=== PATIENT | female | born 1955 | race Caucasian/White ===

== ENCOUNTER 2017-05-24 20:12 | Observation (INO) ==
--- NOTE | 2017-05-24 20:43 | Emergency Department Note ---
Disposition Clinical Impression: Altered mental status, Syncope, Abnormal EKG, Obesity, Elevated blood pressure reading, History of pancreatitis, Leg edema, right, History of peripheral vascular disease Disposition: Admitted As Inpatient Referrals: Bernard Key DO [Primary Care Provider] - Forms: ED Satisfaction Letter General Adult HPI - General Chief complaint: ED Syncope Stated complaint: Dizzy,Passed Out Time Seen by Provider: 05/24/17 20:42 Source: patient, family Limitations: no limitations - History of Present Illness HPI Narrative: 61-year-old female brought in from home, there is concern for syncope. The patient had made a bowl of chicken soup and then reportedly passed out. She was lowered to the ground and did not sustain injury. There is no history of seizure-like activity. The family reports she was unconscious for a significant period of time. She has no previous history of syncope. No coronary disease no history of DVT PE or cancer. She does have a history of high blood pressure and previous leg surgery as well as chronic right lower extremity edema. There is no history of acute headache. No history of neck injury back injury abdominal or chest trauma. The patient is not known to be diabetic. Her glucose was checked at 118. There is no history of laceration or bleeding. The patient is not known to be anticoagulated. The patient does take diuretic medication per the . The patient has not been more anxious than usual. There is no history of increased stress or psychiatric concerns. The patient has no personal history of aneurysm. There are no direct complaints from the patient. She does not give a clear history. The patient's provides the information. He states she takes Vicodin for pain but only 1 tablet daily and has not taken it for a few days. Pain Scale: 0 - Related Data Previous Rx's Medication Instructions Recorded Hydrocodone/Acetaminophen [[place] 1 tab PO Q6H PRN #10 tab 11/05/15 5-325 Tablet] Ondansetron ODT [Zofran ODT] 4 mg SL Q6HR #10 tab.rapdis 11/05/15 Sulfamethoxazole/Trimeth DS 1 each PO BID #20 tablet 11/05/15 [Bactrim DS] Amoxicillin 875 mg PO BID #20 tablet 02/07/17 Ibuprofen [Motrin] 800 mg PO Q8HR PRN #20 tablet 02/07/17 Allergies Allergy/AdvReac Type Severity Reaction Status Date / Time No Known Allergies Allergy Verified 02/07/17 19:35 All systems ED: reviewed and negative except as stated. Past Medical History - Past Medical History Medical history: Reports: peripheral artery disease, thyroid disease Psychiatric history: Reports: anxiety [employer] MEDIA SPECIALIST history: Reports: no [employer]IA SPECIALIST history - Social History Smoking Status: Never smoker Smokeless Tobacco Status: No Alcohol use: Reports: none Drug use: Reports: none Physical Exam - General Limitations: no limitations General appearance: alert, lethargic, other (The patient is resting with her eyes closed and does not answer questions properly, she is arousable to sternal rub and does move her extremities. The patient is somewhat obese does not appear to be in distress or respiratory labor.) - Head Head exam: atraumatic, normocephalic, normal inspection - Eye Eye exam: Present: normal appearance, PERRL, EOMI. Absent: scleral icterus, conjunctival injection, miosis, mydriasis - ENT ENT exam: normal exam, normal oropharynx, mucous membranes moist, TM's normal bilaterally, normal external ear exam - Neck Neck exam: Present: normal inspection, full ROM, trachea midline. Absent: tenderness, meningismus - Chest Chest inspection: Present: normal inspection, symmetric chest wall rise. Absent : tenderness, rash - Respiratory Respiratory exam: Present: normal lung sounds bilaterally. Absent: respiratory distress, wheezes, stridor, accessory muscle use, prolonged expiratory phase - Cardiovascular Cardiovascular exam: Present: regular rate, normal rhythm, normal heart sounds - Abdominal Exam Abdominal exam: Present: soft, Non-Tender, normal bowel sounds. Absent: tenderness, distention, guarding, rebound, rigidity, trauma, pulsatile mass - Extremities Exam Extremities exam: Present: full ROM, normal capillary refill, other (All 4 extremities are warm and well perfused and supple with no evidence of flank injury. There is no evidence of acute neurovascular or neuromuscular compromise. The patient does have right lower extremity edema versus the left.) . Absent: normal inspection, tenderness, pedal edema, joint swelling - Expanded Lower Extremity Exam Lower leg exam: Absent: Homans' sign Neurovascular/Tendon exam: Present: normal capillary refill. Absent: motor deficit, sensory deficit, tendon deficit, extremity cold to touch, pallor - Back Exam Back exam: Present: normal inspection, full ROM. Absent: tenderness, CVA tenderness (R), CVA tenderness (L), vertebral tenderness - Neurological Exam Neurological exam: Present: alert, oriented X3, CN II-XII intact. Absent: motor sensory deficit - Psychiatric Psychiatric exam: Present: normal affect, normal mood - Skin Skin exam: Present: warm, dry, intact, normal color. Absent: rash, cyanosis, diaphoresis, erythema, pallor, mottled Course - Reevaluation(s) Reevaluation #1: Initially the patient was somewhat somnolent but arousable here in the ED. During her course she became much more alert and was answering questions properly. She denied any antecedent concerns are to be reported syncopal event , she does not really remember what happened. She denies acute pain. The patient denies headache neck pain back pain chest pain shortness of breath or abdominal pain. She has had no trouble moving the arms or legs independently no slurred speech, there is no history of facial droop or numbness or weakness on one side of the body. Reevaluation #2: Reexamination reveals the patient to be alert oriented with good muscle strength and sensation throughout display no focal neurologic defects. The patient has no abdominal pain to palpation. 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 The back shows no evidence of injury or pain palpation of thoracolumbar column no crepitus step-off of chest or injury to the thorax or abdomen are appreciated. The neck is supple. All 4 extremities are supple show no evidence of injury at all warm and well perfused however right lower extremity edema is noted. The patient had a history of peripheral artery disease and surgery in that leg. No evidence of acute trauma or acute neurovascular or neuromuscular compromise. Vital Signs Temperature 97.9 F 05/24/17 20:16 Pulse Rate 80 05/24/17 20:16 Respiratory Rate 18 05/24/17 20:16 Blood Pressure 190/81 05/24/17 20:16 O2 Sat by Pulse Oximetry 94 05/24/17 20:16 Temperature 97.9 F 05/24/17 20:16 Pulse Rate 78 05/24/17 22:56 Respiratory Rate 20 05/24/17 22:56 Blood Pressure 180/84 05/24/17 22:56 O2 Sat by Pulse Oximetry 96 05/24/17 22:56 Oxygen Delivery Oxygen Delivery Room Air Medical Decision Making - MDM Narrative Medical decision making narrative: The patient apparently had a syncopal event with sustained confusion. There is no history of veronique seizure-like activity. The patient was monitored in the emergency department and became much more arousable. Chest x-ray negative, CT scan head negative, EKG shows no acute ST changes. Laboratory studies unrevealing. The patient has a history of pancreatitis, she denies abdominal pain. Lipase negative. The patient does not remember what happened. Based on the patient's age, apparent syncopal event, and significant decreased responsiveness on arrival, I thought it be appropriate to admit the patient the hospital. She does not display veronique seizure-like activity but this is certainly in the differential. The patient's CTA chest is negative, the patient 's CT abdomen pelvis is pending. Urinalysis pending. I discussed the case with the hospitalist on-call who has accepted the patient to their care. The patient is currently stable pending admission. - Lab Data Lab results reviewed: Yes I reviewed the patient's lab results. Result diagrams: 05/24/17 20:41 05/24/17 20:41 Lab Results 05/24/17 05/24/17 05/24/17 Range/Units 20:27 20:41 20:41 WBC 8.5 (4.3-11.1) K/mcL RBC 4.12 (3.82-4.97) M/mcL Hgb 12.6 (11.5-15.4) g/dL Hct 37.3 (35.3-44.9) % MCV 90.5 (83.0-100.0) fL MCH 30.6 (28.0-33.3) pg MCHC 33.8 (31.6-35.5) g/dL RDW 12.7 (11.5-14.5) % Plt Count 293 (140-400) K/mcL MPV 9.7 (9.4-12.4) fL Immature Gran % 0.2 (0-4) % Seg Neutrophils % 52.4 % Lymphocytes % 36.6 % Monocytes % 7.9 % Eosinophils % 2.7 % Basophils % 0.2 % Neutrophils # 4.5 (1.6-8.9) K/mcL Lymphocytes # 3.1 (0.6-4.6) K/mcL Monocytes # 0.7 (0.0-1.3) K/mcL Eosinophils # 0.2 (0.0-0.6) K/mcL Basophils # 0.0 (0.0-0.2) K/mcL PT 11.9 (9.4-12.1) Seconds INR 1.1 APTT 30.5 (26.0-36.0) Seconds Sodium (136-145) mEq/L Potassium (3.5-4.5) mEq/L Chloride (98-109) mEq/L Carbon Dioxide (19-29) mEq/L BUN (7-20) mg/dL Creatinine (0.57-1.11) mg/dL Est GFR ( Amer) (> 60) Est GFR (Non-Af Amer) (> 60) BUN/Creatinine Ratio (6-26) Glucose (70-99) mg/dL POC Glucose 118 H (58-89) Calculated Osmolality (280-300) Lactic Acid (0.5-2.2) mmol/L Calcium (8.6-10.8) mg/dL Total Bilirubin (0.2-1.2) mg/dL Direct Bilirubin (0.0-0.5) mg/dL Indirect Bilirubin (0.0-1.2) mg/dL AST (5-34) Units/L ALT (0-55) Units/L Alkaline Phosphatase (38-126) Units/L Troponin I (0-0.03) ng/mL C-Reactive Protein (Less than 5) mg/L B-Natriuretic Peptide (0-100) pg/mL Serum Total Protein (6.0-8.3) g/dL Albumin (3.5-5.0) g/dL Globulin (2.4-3.5) g/dL Albumin/Globulin Ratio (1.1-2.2) Lipase (8-78) Units/L 05/24/17 05/24/17 05/24/17 Range/Units 20:41 20:41 20:41 WBC (4.3-11.1) K/mcL RBC (3.82-4.97) M/mcL Hgb (11.5-15.4) g/dL Hct (35.3-44.9) % MCV (83.0-100.0) fL MCH (28.0-33.3) pg MCHC (31.6-35.5) g/dL RDW (11.5-14.5) % Plt Count (140-400) K/mcL MPV (9.4-12.4) fL Immature Gran % (0-4) % Seg Neutrophils % % Lymphocytes % % Monocytes % % Eosinophils % % Basophils % % Neutrophils # (1.6-8.9) K/mcL Lymphocytes # (0.6-4.6) K/mcL Monocytes # (0.0-1.3) K/mcL Eosinophils # (0.0-0.6) K/mcL Basophils # (0.0-0.2) K/mcL PT (9.4-12.1) Seconds INR APTT (26.0-36.0) Seconds Sodium 140 (136-145) mEq/L Potassium 3.5 (3.5-4.5) mEq/L Chloride 102 (98-109) mEq/L Carbon Dioxide 27 (19-29) mEq/L BUN 15 (7-20) mg/dL Creatinine 0.61 (0.57-1.11) mg/dL Est GFR ( Amer) > 60 (> 60) Est GFR (Non-Af Amer) > 60 (> 60) BUN/Creatinine Ratio 25 (6-26) Glucose 115 H (70-99) mg/dL POC Glucose (58-89) Calculated Osmolality 292 (280-300) Lactic Acid 2.1 (0.5-2.2) mmol/L Calcium 9.8 (8.6-10.8) mg/dL Total Bilirubin 0.4 (0.2-1.2) mg/dL Direct Bilirubin 0.2 (0.0-0.5) mg/dL Indirect Bilirubin 0.2 (0.0-1.2) mg/dL AST 36 H (5-34) Units/L ALT 26 (0-55) Units/L Alkaline Phosphatase 58 (38-126) Units/L Troponin I 0.00 (0-0.03) ng/mL C-Reactive Protein 8 H (Less than 5) mg/L B-Natriuretic Peptide (0-100) pg/mL Serum Total Protein 7.4 (6.0-8.3) g/dL Albumin 3.7 (3.5-5.0) g/dL Globulin 3.7 H (2.4-3.5) g/dL Albumin/Globulin Ratio 1.0 L (1.1-2.2) Lipase 14 (8-78) Units/L 05/24/17 Range/Units 21:00 WBC (4.3-11.1) K/mcL RBC (3.82-4.97) M/mcL Hgb (11.5-15.4) g/dL Hct (35.3-44.9) % MCV (83.0-100.0) fL MCH (28.0-33.3) pg MCHC (31.6-35.5) g/dL RDW (11.5-14.5) % Plt Count (140-400) K/mcL MPV (9.4-12.4) fL Immature Gran % (0-4) % Seg Neutrophils % % Lymphocytes % % Monocytes % % Eosinophils % % Basophils % % Neutrophils # (1.6-8.9) K/mcL Lymphocytes # (0.6-4.6) K/mcL Monocytes # (0.0-1.3) K/mcL Eosinophils # (0.0-0.6) K/mcL Basophils # (0.0-0.2) K/mcL PT (9.4-12.1) Seconds INR APTT (26.0-36.0) Seconds Sodium (136-145) mEq/L Potassium (3.5-4.5) mEq/L Chloride (98-109) mEq/L Carbon Dioxide (19-29) mEq/L BUN (7-20) mg/dL Creatinine (0.57-1.11) mg/dL Est GFR ( Amer) (> 60) Est GFR (Non-Af Amer) (> 60) BUN/Creatinine Ratio (6-26) Glucose (70-99) mg/dL POC Glucose (58-89) Calculated Osmolality (280-300) Lactic Acid (0.5-2.2) mmol/L Calcium (8.6-10.8) mg/dL Total Bilirubin (0.2-1.2) mg/dL Direct Bilirubin (0.0-0.5) mg/dL Indirect Bilirubin (0.0-1.2) mg/dL AST (5-34) Units/L ALT (0-55) Units/L Alkaline Phosphatase (38-126) Units/L Troponin I (0-0.03) ng/mL C-Reactive Protein (Less than 5) mg/L B-Natriuretic Peptide 36 (0-100) pg/mL Serum Total Protein (6.0-8.3) g/dL Albumin (3.5-5.0) g/dL Globulin (2.4-3.5) g/dL Albumin/Globulin Ratio (1.1-2.2) Lipase (8-78) Units/L - Radiology Data Radiology results reviewed: Yes I reviewed the patient's radiology results.
[2017-05-24 20:50] LABS: Basophils % 0.2 %; Eosinophils # 0.2 K/mcL (0.0-0.6); Eosinophils % 2.7 %; Hematocrit 37.3 % (35.3-44.9); Hemoglobin 12.6 g/dL (11.5-15.4); Immature Granulocytes % 0.2 % (0-4); Lymphocytes # 3.1 K/mcL (0.6-4.6); Lymphocytes % 36.6 %; Mean Corpuscular HGB Conc 33.8 g/dL (31.6-35.5); Mean Corpuscular Hemoglobin 30.6 pg (28.0-33.3); Mean Corpuscular Volume 90.5 fL (83.0-100.0); Mean Platelet Volume 9.7 fL (9.4-12.4); Monocytes # 0.7 K/mcL (0.0-1.3); Monocytes % 7.9 %; Neutrophils # 4.5 K/mcL (1.6-8.9); Platelet Count 293 K/mcL (140-400); Red Blood Count 4.12 M/mcL (3.82-4.97); Red Cell Distribution Width 12.7 % (11.5-14.5); Segmented Neutrophils % 52.4 %
[2017-05-24 20:56] LABS: INR 1.1; Prothrombin Time 11.9 Seconds (9.4-12.1)
[2017-05-24 20:59] LABS: Activated Partial Thrombo Time 30.5 Seconds (26.0-36.0)
[2017-05-24] MEDS ORDERED: 0.9 % Sodium Chloride 1,000 ML IVC SCH (21:00)
[2017-05-24 21:07] LABS: BUN/Creatinine Ratio 25 (6-26); Blood Urea Nitrogen 15 mg/dL (7-20); Calcium 9.8 mg/dL (8.6-10.8); Carbon Dioxide 27 mEq/L (19-29); Chloride 102 mEq/L (98-109); Glucose 115 mg/dL (70-99); Osmolality,Calculated 292 (280-300); Potassium 3.5 mEq/L (3.5-4.5); Sodium 140 mEq/L (136-145); eGFR For African Americans > 60 (> 60); eGFR For Non-African Americans > 60 (> 60)
[2017-05-24 21:23] LABS: Alanine Aminotransferase 26 Units/L (0-55); Albumin 3.7 g/dL (3.5-5.0); Alkaline Phosphatase 58 Units/L (38-126); Aspartate Amino Transferase 36 Units/L (5-34); Bilirubin,Direct 0.2 mg/dL (0.0-0.5); Bilirubin,Indirect 0.2 mg/dL (0.0-1.2); Bilirubin,Total 0.4 mg/dL (0.2-1.2); C-Reactive Protein 8 mg/L (Less than 5); Globulin 3.7 g/dL (2.4-3.5); Lipase 14 Units/L (8-78); Total Protein 7.4 g/dL (6.0-8.3)
[2017-05-25] MEDS ORDERED: Ondansetron 4 MG/2 ML VIAL IVP PRN (01:21)
[2017-05-25] MEDS ORDERED: Naloxone 0.4 MG/ML INJ IVP PRN (01:21)
[2017-05-25] MEDS: *HR* Metoprolol 5 MG/5 ML VIAL IVP SCH ×2 (01:57→05:05)
[2017-05-25] MEDS ORDERED: Dextrose Gel 15 GM PO PRN ×2 (01:59)
[2017-05-25] MEDS ORDERED: D5% in Water 1,000 ML IVC PRN (01:59)
[2017-05-25] MEDS ORDERED: *HR* Dextrose 50 % in Water (Syg) 50 ML SYRINGE IVP PRN (01:59)
[2017-05-25] MEDS: Insulin LISPRO 300 UNITS/3 ML VIAL SQ SCH ×5 (02:05→20:28)
--- NOTE | 2017-05-25 02:06 | Internal Med History&Physical ---
Date of Encounter: 05/25/17 Time of Encounter: 02:02 Assessment and Plan (1) Syncope Current visit: Yes Status: Acute Of unclear etiology CT head and CTA chest negative will obtain 2D echo to rule out any valvular dysfunction. Noted to have systolic murmur, concerning for Aortic Stenosis f/u carotid dopplers will obtain orthostatic vitals maintain fall precautions cardiac monitoring. Qualifiers: Syncope type: unspecified Qualified Code(s): R55 - Syncope and collapse (2) Hypertension Current visit: Yes Status: Acute Pt reports of not taking her home medications however does not recall what medications she takes Will start Lopressor 5mg IV q6h Hydralazine 10mg IVP q6h prn SBP>150 Will closely monitor BP noted to have elevated BP at this time, likely secondary to missed home dose of medication Please verify and resume home medications in am Qualifiers: Hypertension type: essential hypertension Qualified Code(s): I10 - Essential (primary) hypertension (3) Diabetes mellitus Current visit: Yes Status: Chronic will hold oral antihyperglycemic agents at this time started sliding scale insulin algorithm continue to monitor FS and BG ADA diet Qualifiers: Diabetes mellitus type: type 2 Diabetes mellitus complication status: with unspecified complications Diabetes mellitus terminal operations supervisor insulin use: unspecified terminal operations supervisor insulin use status Qualified Code(s): E11.8 - Type 2 diabetes mellitus with unspecified complications (4) DVT prophylaxis Current visit: Yes Status: Acute Heparin SQ (5) History of peripheral vascular disease Current visit: Yes Status: Chronic Internal Medicine - H&P: HPI Chief complaint: status post syncopal episode Admitted From: Home Plans for Post Hospital Care: Home History of present illness: Ms. Nuñez is a 61 year old female with PMH of HTN, DM, PVD, thyroid disease, iron deficiency anemia, HLD, and morbid obesity who was brought to the ER s/p syncope. Patient is currently AAO x 3 and resting comfortably in bed. She states she was cooking dinner and felt lightheaded and held on to her after which she doesn't recall what happened. No family is present at bedside to give further history. As per patient, prior to her passing out, she felt lightheaded and had a sensation that she was going to pass out. Her caught her and lowered her to the ground. Patient was unconscious or a significant period, and was woken up when EMS was at her house. No seizure like activity was reported, no lose of bowel or bladder function. No prior history of such episodes were reported. At this time patient is resting and denies any headache, dizziness, chest pain, sob, abd pain, n/v, fever, or chills. reports of having a heart murmur but denies any cardiac work up for it. Reports of being a former smoker. Past Med Surg Social Fam HX - Past Medical History Medical history: diabetes, hyperlipidemia, hypertension, peripheral artery disease, thyroid disease Psychiatric history: anxiety - Social History Smoking Status: Never smoker Smokeless Tobacco Status: No Alcohol use: none Drug use: none - Family History Mother Living Status: Hx Family Cardiac Disorders: No (cardiac arrest) Internal Medicine - H&P: Meds Hydrocodone/Acetaminophen [[place] 5-325 Tablet] 1 tab PO Q6H PRN #10 tab [Rx] Ondansetron ODT [Zofran ODT] 4 mg SL Q6HR #10 tab.rapdis 11/05/15 [Rx] Sulfamethoxazole/Trimeth DS [Bactrim DS] 1 each PO BID #20 tablet 11/05/15 [Rx] Amoxicillin 875 mg PO BID #20 tablet 02/07/17 [Rx] Ibuprofen [Motrin] 800 mg PO Q8HR PRN #20 tablet 02/07/17 [Rx] Allergies No Known Allergies Allergy (Verified 02/07/17 19:35) All Systems PM: A 10-system review of systems was performed and is negative for pertinent findings except as documented above in the HPI. - Constitutional Constitutional: as per HPI - Constitutional Vitals: Temp Pulse Resp BP Pulse Ox 98.1 F 83 15 195/84 94 05/25/17 01:00 05/25/17 01:00 05/25/17 01:00 05/25/17 01:00 05/25/17 01:00 General appearance: Present: cooperative, A&O X 3, morbidly obese, pleasant, no acute distress, answers questions appropriately - Head Head exam: Present: atraumatic, normocephalic - Eye Eye exam: Present: normal appearance, conjuntiva pink, sclera anicteric - Respiratory Respiratory exam: Present: CTAB. Absent: respiratory distress, wheezes - Cardiovascular Cardiovascular exam: Present: RRR, +S1, +S2, systolic murmur - GI/Abdominal GI/Abdominal exam: Present: normal bowel sounds, soft. Absent: distended, tenderness - Extremities Exam Extremities exam: Present: pedal edema, warm, radial pulses palpable and symetrical. Absent: calf tenderness - Neurological Exam Neurological exam: Present: alert, oriented X3, no focal deficits, strengths equal and symetr throughout. Absent: pronater drift, facial droop, speech deficit - Psychiatric Psychiatric exam: Present: normal affect Internal Med - H&P Results - Labs CBC & Chem 7: 05/24/17 20:41 05/24/17 20:41
[2017-05-25] MEDS: *HR* OxyCODONE/APAP 5/325 TABLET PO PRN ×2 (03:42→09:31)
[2017-05-25 04:35] LABS: Basophils % 0.3 %; Eosinophils # 0.3 K/mcL (0.0-0.6); Eosinophils % 3.1 %; Hematocrit 37.2 % (35.3-44.9); Hemoglobin 12.1 g/dL (11.5-15.4); Immature Granulocytes % 0.2 % (0-4); Lymphocytes # 2.9 K/mcL (0.6-4.6); Lymphocytes % 33.6 %; Mean Corpuscular HGB Conc 32.5 g/dL (31.6-35.5); Mean Corpuscular Volume 92.3 fL (83.0-100.0); Mean Platelet Volume 10.2 fL (9.4-12.4); Monocytes # 0.6 K/mcL (0.0-1.3); Monocytes % 6.8 %; Neutrophils # 4.8 K/mcL (1.6-8.9); Platelet Count 289 K/mcL (140-400); Red Blood Count 4.03 M/mcL (3.82-4.97); Red Cell Distribution Width 12.8 % (11.5-14.5)
[2017-05-25 04:57] LABS: Bilirubin,Urine Negative (Negative); Blood,Urine Negative (Negative); Clarity,Urine Clear (Clear); Color,Urine Yellow (Yellow); Glucose,Urine (UA) Normal (Normal); Ketones,Urine Negative (Negative); Leukocyte Esterase,Urine Moderate (Negative); Nitrite,Urine Negative (Negative); PH,Urine 6.5 pH Units (5.0-8.0); Protein,Urine Negative (Neg-Trace); Specific Gravity,Urine 1.014 (1.010-1.025); Urobilinogen,Urine Normal (Normal)
[2017-05-25 04:57] LABS: BUN/Creatinine Ratio 16 (6-26); Blood Urea Nitrogen 11 mg/dL (7-20); Calcium 9.4 mg/dL (8.6-10.8); Carbon Dioxide 28 mEq/L (19-29); Chloride 104 mEq/L (98-109); Glucose 151 mg/dL (70-99); Magnesium 1.2 mg/dL (1.6-2.6); Osmolality,Calculated 296 (280-300); Phosphorous 3.3 mg/dL (2.3-4.7); Sodium 142 mEq/L (136-145); eGFR For African Americans > 60 (> 60); eGFR For Non-African Americans > 60 (> 60)
[2017-05-25 05:00] LABS: Bacteria,Urine None Seen per hpf (None-Few); Hyaline Casts,Urine None Seen per lpf (None-Few); RBC,Urine 0-3 per hpf (0-3); Squamous Epithelial Cell,Urine Moderate per lpf (None-Few); WBC,Urine 15-30 per hpf (0-3)
[2017-05-25 05:02] LABS: Amphetamine Screen,Urine Negative ng/mL (Cutoff=1000); Barbiturate Screen,Urine Negative ng/mL (Cutoff=200); Benzodiazepines Screen,Urine Negative ng/mL (Cutoff=200); Cannabinoid Screen,Urine Negative ng/mL (Cutoff = 50); Cocaine Screen,Urine Negative ng/mL (Cutoff= 300); Opiate Screen,Urine Negative ng/mL (Cutoff=300); Phencyclidine Screen,Urine Negative ng/mL (Cutoff=25)
[2017-05-25] MEDS: *HR* Heparin 5,000 UNIT/ML VIAL SQ SCH ×3 (05:05→20:13)
[2017-05-25 05:21] LABS: Potassium 3.6 mEq/L (3.5-4.5)
[2017-05-25] MEDS ORDERED: Magnesium Sulfate 2 GM in D5% in Water 100 ML IVPB ONE (08:37)
[2017-05-25] MEDS ORDERED: *HR* LORazepam 1 MG TABLET PO PRN (10:06)
[2017-05-25] MEDS ORDERED: amLODIPine 5 MG TABLET PO SCH ×2 (10:15→11:45)
[2017-05-25] MEDS ORDERED: Metoprolol XL (24 HR) Succ 50 MG TAB.ER.24H PO SCH ×2 (10:15→18:02)
[2017-05-25] MEDS ORDERED: Lisinopril 20 MG TABLET PO SCH (11:45)
--- NOTE | 2017-05-25 13:07 | Electrocardiograph Report ---
[place] [id number] Test Date: 2017-05-24 Pat Name: Tatiana Nuñez Department: 105 Room: 3B41 Gender: F Computer Programming Supervisor: YANNI : [id number] Requested By: Dwyane Mcfadden Order Number: [id number] Reading MD: Sudhakar Sotelo MD Measurements Intervals [place] Rate: 73 P: 70 TX: 193 QRS: 30 QRSD: 101 T: 102 QT: 403 QTc: 429 Interpretive Statements SINUS RHYTHM BASELINE ARTIFACT Electronically Signed On 05-25-2017 13:05:25 EDT by Sudhakar Sotelo MD
[2017-05-25] MEDS: *HR* HYDROcodone/Acet 10/325 mg TABLET PO PRN ×2 (14:22→20:21)
--- NOTE | 2017-05-25 17:26 | Carotid Imaging Report ---
Carotid Duplex Patient Name:Tatiana Nuñez Order Number:[id number] Procedure Date:05/25/2017 Date:1955ge:61 yrs Gender:Female Lt BP:184 / 83 mmHg Rt.BP:184 / 83 mmHgHeart Rate: Location:[facility] Room #: 3B41 Community Ambassador:Odalys Foote Referring MD:Pau Mahoney MD machinery mover:Bernard Key DO Reading MD:Juan Wallace MD Primary Indications:Syncope Risk Factors Yes/No Hypertension Diabetes Hypercholesterolemia Smoker Previous Impressions: Findings: Right proximal ICA has a severe, 60-79% stenosis.Findings: Left proximal ICA has a moderate, 40-59% stenosis. Recommendations: Risk Factor Modification, Medical Therapy, and Follow up exam 12 months. Findings Carotid Duplex: Right: There is nonstenotic plaque in the right distal common carotid artery. There is irregular heterogeneous plaque. There is nonstenotic plaque in the right bifurcation. There is calcified plaque. There is 60-79% stenosis in the right proximal internal carotid artery. There is calcified plaque. There is nonstenotic plaque in the right mid internal carotid artery. There is nonstenotic plaque in the right eca. There is smooth heterogeneous plaque. The right distal internal carotid artery was not well visualized. Left: There is nonstenotic plaque in the left bifurcation. There is calcified plaque. There is 40-59% stenosis in the left proximal internal carotid artery. There is smooth heterogeneous plaque. There is 40-59% stenosis in the left mid internal carotid artery. There is 40-59% stenosis in the left distal internal carotid artery. The left eca has turbulent flow with plaque. Prior Study: No prior study available for comparison. Carotid Results Right PSV EDV Assessment Proximal CCA 79 10 Normal Mid CCA 80 20 Normal Distal CCA 71 16 Non Stenotic Plaque Bifurcation 105 27 Non Stenotic Plaque Proximal ICA 176 47 60-79% stenosis Mid ICA 95 31 Non Stenotic Plaque Distal ICA 83 28 Not Well Visualized ECA 90 15 Non Stenotic Plaque Vertebral Artery 42 6 Antegrade Flow Left PSV EDV Assessment Proximal CCA 111 16 Normal Mid CCA 77 11 Normal Distal CCA 69 14 Normal Bifurcation 71 19 Non Stenotic Plaque Proximal ICA 125 25 40-59% stenosis Mid ICA 134 37 40-59% stenosis Distal ICA 158 34 40-59% stenosis ECA 101 15 Non Stenotic Plaque Vertebral Artery 55 18 Antegrade Flow Ratio's Right ICA/CCA Ratio: 2.20 ICA/CCA Values: 176/80 Left ICA/CCA Ratio: 2.05 ICA/CCA Values: 158/77 Updated by Juan Wallace MD on 05/25/2017 5:20:50 PM electronically signed on 05/25/2017 5:21:03 PM with status of Final
[2017-05-25] MEDS ORDERED: *HR* Metoprolol 5 MG/5 ML VIAL IVP PRN (17:55)
--- NOTE | 2017-05-25 17:58 | Event Note ---
Date of Encounter: 05/25/17 Time of Encounter: 17:15 Patient seen and examined. On examination, patient sitting upright in bed eating her dinner. Patient is alert and oriented 3 and currently denies pain or shortness of breath. She is asymptomatic. No focal neurological weakness is present. She had an upright and steady gait ambulating to and from the bathroom. Chest x-ray negative. Head CT negative. Chest CTA negative for acute processes. Echocardiogram revealing ejection fraction of 60%, mild diastolic dysfunction, mild to moderate MR and Chad sclerotic aortic valve with borderline evidence for aortic stenosis. Mild to moderate TR and moderate pulmonary hypertension. Her most prior echocardiogram was back in 2009 and revealed an ejection fraction of 60% with mild diastolic dysfunction and was otherwise unremarkable. Given that she has aortic stenosis, will hold ACEI, ARB , and hydralazine. Will bring cardiology onboard for abnormal echo and appreciate their input on antihypertensive medications. Her blood pressure has been difficult to control thus far. At home, she is on Toprol 50 mg daily, furosemide 80 mg daily, amlodipine/benazepril 5-40 daily. Will continue and increase her amlodipine and hold her furosemide at this time. We will also hold CHAD inhibitor. We will increase her Toprol. Lopressor as needed IV. Abnormal urinalysis noted, awaiting urine culture. Patient denies dysuria but states that she has had urinary tract infections in the past. Hypomagnesemia noted, will replete and trend. Carotid duplex with right-sided severe stenosis , left side moderate, follow-up outpatient. Patient also stating that she has had increased headaches in the recent past but she is unable to quantify. She states that she never thought to check her blood pressure at home as a possible causative factor for these headaches. Tox screen negative. We will observe overnight and possibly discharge in the morning pending clinical outcomes. ITS Impressions Chest X-Ray 05/24/17 20:43 IMPRESSION: No acute cardiopulmonary abnormality. D/ / Rafael Reed MD / Rafael Reed MD Interpreting Provider: Rafael Reed MD Head CT 05/24/17 20:43 IMPRESSION: No acute intracranial abnormality. D/ / Rafael Reed MD / Rafael Reed MD Interpreting Provider: Rafael Reed MD Chest CTA 05/24/17 20:52 IMPRESSION: No CT evidence of aortic dissection. D/ / Carolann Elena Cha, MD / Carolann Elena Cha, MD Interpreting Provider: Carolann Elena Cha, MD Echo with saline contrast impressions: LVEF 60%. Mild concentric left ventricular hypertrophy. LV diastolic dysfunction with elevated filling pressures. Mild-moderate mitral regurgitation. Normal right ventricular structure and function. Sclerotic aortic valve with borderline evidence for aortic stenosis. Mild-moderate tricuspid regurgitation. Moderate pulmonary hypertension.
[2017-05-25] MEDS ORDERED: Metoprolol XL (24 HR) Succ 25 MG TAB.ER.24H PO ONE (19:00)
[2017-05-25] MEDS ORDERED: Gabapentin 300 MG CAPSULE PO SCH (21:00)
[2017-05-26] MEDS: *HR* Heparin 5,000 UNIT/ML VIAL SQ SCH (06:12)
[2017-05-26 06:32] LABS: BUN/Creatinine Ratio 33 (6-26); Blood Urea Nitrogen 19 mg/dL (7-20); Calcium 9.2 mg/dL (8.6-10.8); Carbon Dioxide 24 mEq/L (19-29); Chloride 103 mEq/L (98-109); Glucose 121 mg/dL (70-99); Magnesium 1.2 mg/dL (1.6-2.6); Osmolality,Calculated 290 (280-300); Potassium 3.9 mEq/L (3.5-4.5); Sodium 138 mEq/L (136-145); eGFR For African Americans > 60 (> 60); eGFR For Non-African Americans > 60 (> 60)
[2017-05-26 06:55] LABS: Thyroid Stimulating Hormone 5.182 mcIU/mL (0.350-4.840)
[2017-05-26 07:03] VITALS: BP 156/85
[2017-05-26] MEDS: Insulin LISPRO 300 UNITS/3 ML VIAL SQ SCH (07:45)
[2017-05-26] MEDS: *HR* HYDROcodone/Acet 10/325 mg TABLET PO PRN (07:47)
[2017-05-26] MEDS ORDERED: Magnesium Sulfate 2 GM in D5% in Water 100 ML IVPB ONE (08:03)
[2017-05-26 08:35] LABS: Hemoglobin A1C 6.1 %
[2017-05-26] MEDS ORDERED: amLODIPine 5 MG TABLET PO SCH (09:00)
[2017-05-26] MEDS ORDERED: Metoprolol XL (24 HR) Succ 25 MG TAB.ER.24H PO SCH ×2 (09:00)
[2017-05-26] MEDS ORDERED: Fenofibrate 54 MG TABLET PO SCH (09:00)
[2017-05-26] MEDS ORDERED: Folic Acid 1 MG TABLET PO SCH (09:00)
[2017-05-26 09:10] LABS: Triiodothyronine (T3) Free 2.53 pg/mL (1.71-3.71)
--- NOTE | 2017-05-26 09:45 | Discharge Summary ---
Date of Encounter: 05/26/17 Time of Encounter: 09:00 - Discharge Diagnosis (1) Syncope Priority: Primary Status: Acute Comments: Unclear etiology. Patient was asymptomatic throughout this admission, follow- up outpatient. Qualifiers: Syncope type: unspecified Qualified Code(s): R55 - Syncope and collapse (2) History of peripheral vascular disease Priority: Secondary Status: Chronic (3) Diabetes mellitus Priority: Secondary Status: Chronic Comments: Controlled with an A1c of 6.1%. Follow-up outpatient. Qualifiers: Diabetes mellitus type: type 2 Diabetes mellitus complication status: with unspecified complications Diabetes mellitus fci insulin use: without long term care phlebotomist use Qualified Code(s): E11.8 - Type 2 diabetes mellitus with unspecified complications (4) Hypertension Priority: Secondary Status: Chronic Comments: Uncontrolled upon arrival, better controlled on day of discharge. At home, she is on Toprol 50 mg daily, furosemide 80 mg daily, amlodipine/benazepril 5-40 daily. Spoke to cardiology, her aortic stenosis is only borderline, no indication to avoid Chad inhibitors, ARBs. Amlodipine and Toprol dosages were increased. Recommend daily blood pressure checks at home, keeping all, and following up outpatient. Qualifiers: Hypertension type: essential hypertension Qualified Code(s): I10 - Essential (primary) hypertension (5) DVT prophylaxis Priority: Primary Status: Acute Comments: Subcutaneous heparin while admitted (6) Morbid obesity with BMI of 40.0-44.9, adult Priority: Secondary Status: Chronic - Discharge Medications Prescriptions: amLODIPine [Norvasc] 10 mg PO DAILY #60 tablet Benazepril HCl [Lotensin] 40 mg PO DAILY #30 tablet Metoprolol XL (24 HR) Succ [Toprol Xl] 75 mg PO DAILY #90 tab.er.24h Home Medications: Atorvastatin Calcium [Lipitor] 80 mg PO HS 05/25/17 [History] Cilostazol [Pletal] 100 mg PO BID 05/25/17 [History] Citalopram Hydrobromide [Celexa] 40 mg PO DAILY 05/25/17 [History] Estrogens, Conjugated [Premarin] 1.25 mg PO DAILY 05/25/17 [History] Fenofibrate Nanocrystallized [Triglide] 160 mg PO DAILY 05/25/17 [History] Ferrous Sulfate [Iron] 325 mg PO DAILY 05/25/17 [History] Folic Acid 1 mg PO DAILY 05/25/17 [History] Furosemide [Lasix] 80 mg PO DAILY 05/25/17 [History] Gabapentin [Neurontin] 300 mg PO HS 05/25/17 [History] HYDROcodone/Acet 10/325 mg [Clinton 10-325 mg] 1 tab PO TID PRN 05/25/17 [History] LORazepam [Ativan] 1 mg PO BID PRN 05/25/17 [History] Levothyroxine [Synthroid] [place] [address]/25/17 [History] Metformin HCl [Glucophage] 1,000 mg PO BID 05/25/17 [History] Montelukast [Singulair] 10 mg PO DAILY 05/25/17 [History] Nabumetone [Relafen] 500 mg PO BID PRN 05/25/17 [History] Oxybutynin [Ditropan] 5 mg PO BID 05/25/17 [History] Pantoprazole Sodium [Protonix] 20 mg PO DAILY 05/25/17 [History] Pnv No.118/Iron Fumarate/FA [Se-Wai 19 Chewable Tablet] 1 tab PO DAILY [History] Potassium Chloride [K-Tab ER] 8 meq PO DAILY 05/25/17 [History] Benazepril HCl [Lotensin] 40 mg PO DAILY #30 tablet 05/26/17 [Rx] Metoprolol XL (24 HR) Succ [Toprol Xl] 75 mg PO DAILY #90 tab.er.24h 05/26/17 [ Rx] amLODIPine [Norvasc] 10 mg PO DAILY #60 tablet 05/26/17 [Rx] Allergies/Adverse Reactions: Allergies No Known Allergies Allergy (Verified 02/07/17 19:35) Procedures/tests Complete & Pending: Procedures Performed prior 72 hours Category Date Time Status EV carotid duplex imaging BI Routine Y 05/25/17 01:23 Completed EV echocardiogram Routine Y 05/25/17 01:23 Completed Date of admission: 05/24/17 23:40 Primary care physician: Lilian Armas Discharging clinician: Anna Willard Anticipated date of discharge: 05/26/17 - Patient Status Disposition: Home, Self-Care Condition: Good Functional capacity at discharge: independent ambulation Overall status at discharge: patient is back to baseline - Discharge Instructions Follow Up With: Bernard Key DO [Primary Care Provider] - (We have requested a hospital follow up with Dr Key. The office will call you at home with an appointment date and time. ) Additional Instructions: Follow-up with primary care provider within one to 2 weeks, check blood pressure daily and keep a log for your primary care provider. - Diet and Activity Activity: increase activity as tolerated Diet: diabetic diet, low fat, low cholesterol, low salt diet Hospital course: Ms. Nuñez is a 61 year old female with past medical history of hypertension, diabetes, PVD, thyroid disease, iron deficiency anemia, hyperlipidemia, morbid obesity. Patient brought to the emergency department chief complaint of syncope. Patient states she was cooking dinner when she started to feel lightheaded and she held onto her 's arm and does not remember what happened next but her states that he let her over to the chair where she sat down. No injuries. She did not hit her head. Patient stating that just prior to having this episode, she felt lightheaded and felt as if she is on a pass out, she also felt extremely dizzy. Patient was allegedly unconscious for a significant period and was woken up in the EMS arrived at her house. No seizure-like activity, no loss of bowel or bladder function, no injuries. No prior history of such episodes. Workup in the emergency department unremarkable other than accelerated hypertension with initial blood pressure of 190/81. Patient was admitted to the hospitalist service for further evaluation and management. Chest x-ray negative. Head CT negative. Chest CTA negative for acute processes. Echocardiogram revealing ejection fraction of 60%, mild diastolic dysfunction, mild to moderate MR and Chad sclerotic aortic valve with borderline evidence for aortic stenosis. Mild to moderate TR and moderate pulmonary hypertension. Her most prior echocardiogram was back in 2009 and revealed an ejection fraction of 60% with mild diastolic dysfunction and was otherwise unremarkable. Spoke to cardiology who states that because her aortic stenosis is only borderline, there is no indication to withhold chad inhibitors or ARBs. Regarding her blood pressure, her Toprol dose was increased, her amlodipine dosage was increased, and her blood pressure was much better improved on day of discharge. She states she has been getting headaches for quite some time and states that she never thought to check her blood pressure. She does have a cuff at home and she was instructed to check her blood pressure daily and as needed. Throughout her one night admission, patient remained alert and oriented 3 and denied lightheadedness, dizziness, or presyncopal sensations. She was ambulatory around her room and around the unit without any difficulty with an upright and steady gait. She had no focal neurological weakness is present throughout this admission-there was no indication for brain MRI or for OT or PT consultations. Carotid duplex with right-sided severe stenosis, left side moderate, follow-up outpatient. Tox screen negative. Patient had a mildly abnormal urinalysis but denied dysuria. Urine culture pending at time of discharge, I will check the culture tomorrow and call the patient if she needs antibiotics. Patient is aware that if she does not receive a call, she does not need antibiotics. Patient with mild hypomagnesemia that was treated while admitted. Regarding possible causes, patient stating that she had received an allergy shot just prior to this episode and she states that her carburetor repairer had increased the dosage of her shot. She also had poorly controlled blood pressure. Regarding further investigation, TSH mildly elevated but free T3 and T4 were normal. A1c 6.1%. Electrolytes were normal, CBC also normal. She was discharged home in stable condition with close outpatient follow-up recommended. She was instructed to check her blood pressure daily and as needed at home. ITS Impressions Chest X-Ray 05/24/17 20:43 IMPRESSION: No acute cardiopulmonary abnormality. D/ / Rafael Reed MD / Rafael Reed MD Interpreting Provider: Rafael Reed MD Head CT 05/24/17 20:43 IMPRESSION: No acute intracranial abnormality. D/ / Rafael Reed MD / Rafael Reed MD Interpreting Provider: Rafael Reed MD Chest CTA 05/24/17 20:52 IMPRESSION: No CT evidence of aortic dissection. D/ / Carolann Elena Cha, MD / Carolann Elena Cha, MD Interpreting Provider: Carolann Elena Cha, MD Echo with saline contrast impressions: LVEF 60%. Mild concentric left ventricular hypertrophy. LV diastolic dysfunction with elevated filling pressures. Mild-moderate mitral regurgitation. Normal right ventricular structure and function. Sclerotic aortic valve with borderline evidence for aortic stenosis. Mild-moderate tricuspid regurgitation. Moderate pulmonary hypertension. Carotid duplex impressions: Findings: Right proximal ICA has a severe, 60-79% stenosis. Findings: Left proximal ICA has a moderate, 40-59% stenosis. Recommendations: Risk factor modification, medical therapy, and follow-up exam in 12 months. - Time Spent with Patient Total time spent providing and/or coordinating discharge services: - Constitutional Vitals: Temp Pulse Resp BP Pulse Ox 97.6 F 72 18 156/85 91 05/26/17 07:02 05/26/17 07:02 05/26/17 07:02 05/26/17 07:02 05/26/17 07:02 General appearance: Present: cooperative, A&O X 3, morbidly obese, pleasant, no acute distress, answers questions appropriately - Head Head exam: Present: atraumatic, normocephalic - Eye Eye exam: Present: PERRL, conjuntiva pink, sclera anicteric Pupils: Present: PERRL - Neck Neck exam general surgery: Present: supple, trachea midline. Absent: lymphadenopathy - Respiratory Respiratory exam: Present: CTAB. Absent: accessory muscle use, rales, respiratory distress, rhonchi, wheezes - Cardiovascular Cardiovascular exam: Present: RRR, +S1, +S2. Absent: diastolic murmur, gallop, rubs, systolic murmur - GI/Abdominal GI/Abdominal exam: Present: normal bowel sounds, soft, no peritoneal signs. Absent: distended, tenderness - Extremities Exam Extremities exam: Present: warm, radial pulses palpable and symetrical. Absent : calf tenderness, cyanotic, pedal edema - Neurological Exam Neurological exam: Present: alert, CN II-XII intact, normal gait, oriented X3, no focal deficits, strengths equal and symetr throughout. Absent: pronater drift, facial droop, speech deficit - Skin Skin exam: Present: dry, intact, normal color, warm
== END 2017-05-26 11:02 | disposition home or self-care (01) ==
LOC: EMEROO 20:12 → 3BNU 20:12
PROVIDERS: ADMIT Internal Medicine; ATTEND Nurse Practitioner Family

== ENCOUNTER 2018-07-02 21:27 | Observation (INO) ==
[2018-07-02 22:27] LABS: Basophils % 0.2 %; Eosinophils # 0.4 K/mcL (0.0-0.6); Eosinophils % 2.4 %; Hematocrit 36.6 % (35.3-44.9); Hemoglobin 12.5 g/dL (11.5-15.4); Immature Granulocytes % 0.4 % (0-4); Lymphocytes % 13.8 %; Mean Corpuscular HGB Conc 34.2 g/dL (31.6-35.5); Mean Corpuscular Hemoglobin 31.5 pg (28.0-33.3); Mean Corpuscular Volume 92.2 fL (83.0-100.0); Mean Platelet Volume 10.6 fL (9.4-12.4); Monocytes # 0.9 K/mcL (0.0-1.3); Monocytes % 6.5 %; Neutrophils # 11.1 K/mcL (1.6-8.9); Platelet Count 263 K/mcL (140-400); Red Blood Count 3.97 M/mcL (3.82-4.97); Segmented Neutrophils % 76.7 %
[2018-07-02] MEDS ORDERED: Isovue-370 500 ML INFUS..BTL IV ONE (22:35)
[2018-07-02 22:53] LABS: BUN/Creatinine Ratio 24 (6-26); Blood Urea Nitrogen 17 mg/dL (8-23); Calcium 9.8 mg/dL (8.6-10.3); Carbon Dioxide 26 mEq/L (23-29); Chloride 99 mEq/L (98-107); Glucose 133 mg/dL (70-105); Osmolality,Calculated 283 (280-300); Potassium 3.5 mEq/L (3.5-5.1); Sodium 135 mEq/L (136-145); Troponin I 0.03 ng/mL (< 0.04); eGFR For Non-African Americans > 60 (> 60)
[2018-07-02] MEDS ORDERED: Levofloxacin 750 MG/150 ML 750 MG/150 ML BAG IVPB ONE (23:31)
--- NOTE | 2018-07-03 00:09 | Emergency Department Note ---
Disposition Clinical Impression: Hypoxemia Pneumonia Qualifiers: Pneumonia type: due to unspecified organism Laterality: right Lung location: upper lobe of lung Qualified Code(s): J18.1 - Lobar pneumonia, unspecified organism Disposition: Admitted As Inpatient Condition: Fair Referrals: Bernard Key DO [Primary Care Provider] - Forms: ED Satisfaction Letter Time of Disposition: 00:59 General Adult HPI - General Chief complaint: ED Weakness Stated complaint: weakness/sob Time Seen by Provider: 07/02/18 21:44 Source: patient Limitations: no limitations Nursing Notes Reviewed: Yes Vital Signs Reviewed: Yes - History of Present Illness HPI Narrative: Patient is a 62-year-old female who presents to [facility] ED with a chief complaint of difficulty breathing. States her symptoms started yesterday and she feels like she is coming down with pneumonia. Patient denies having any history of COPD. States she has had a cough and has been coughing so hard that she has coughed up some logs treatment sputum. Denies any known fever at home. She has felt generally weak. No abdominal pain, nausea or vomiting. No problems with urination or bowel movements. Patient is not on any oxygen at home. Onset (ago): day(s) (2) Location: chest Radiation: non-radiation Pain Severity: moderate Pain Scale: 7 Consistency: constant Improves with: nothing Worsens with: nothing Associated symptoms: Reports: cough, malaise, shortness of breath, weakness. Denies: fever/chills, nausea/vomiting Treatments Prior to Arrival: none - Related Data Home Medications Medication Instructions Recorded Confirmed Atorvastatin Calcium [Lipitor] 80 mg PO HS 05/25/17 05/25/17 Cilostazol [Pletal] 100 mg PO BID 05/25/17 05/25/17 Citalopram Hydrobromide [Celexa] 40 mg PO DAILY 05/25/17 05/25/17 Estrogens, Conjugated [Premarin] 1.25 mg PO DAILY 05/25/17 05/25/17 Fenofibrate Nanocrystallized 160 mg PO DAILY 05/25/17 05/25/17 [Triglide] Ferrous Sulfate [Iron] 325 mg PO DAILY 05/25/17 05/25/17 Folic Acid 1 mg PO DAILY 05/25/17 05/25/17 Furosemide [Lasix] 80 mg PO DAILY 05/25/17 05/25/17 Gabapentin [Neurontin] 300 mg PO HS 05/25/17 05/25/17 HYDROcodone/Acet 10/325 mg [Alexander 1 tab PO TID PRN 05/25/17 05/25/17 10-325 mg] LORazepam [Ativan] 1 mg PO BID PRN 05/25/17 05/25/17 Levothyroxine [Synthroid] [place] [address]/25/17 05/25/17 Metformin HCl [Glucophage] 1,000 mg PO BID 05/25/17 05/25/17 Montelukast [Singulair] 10 mg PO DAILY 05/25/17 05/25/17 Nabumetone [Relafen] 500 mg PO BID PRN 05/25/17 05/25/17 Oxybutynin [Ditropan] 5 mg PO BID 05/25/17 05/25/17 Pantoprazole Sodium [Protonix] 20 mg PO DAILY 05/25/17 05/25/17 Pnv No.118/Iron Fumarate/FA 1 tab PO DAILY 05/25/17 05/25/17 [Se-Wai 19 Chewable Tablet] Potassium Chloride [K-Tab ER] 8 meq PO DAILY 05/25/17 05/25/17 Previous Rx's Medication Instructions Recorded Benazepril HCl [Lotensin] 40 mg PO DAILY #30 tablet 05/26/17 Metoprolol XL (24 HR) Succ [Toprol 75 mg PO DAILY #90 tab.er.24h 05/26/17 Xl] amLODIPine [Norvasc] 10 mg PO DAILY #60 tablet 05/26/17 Allergies Allergy/AdvReac Type Severity Reaction Status Date / Time No Known Allergies Allergy Verified 07/02/18 21:40 All systems ED: reviewed and negative except as stated. Past Medical History - Past Medical History Attestation: Yes The following information was validated with the patient. 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 - Social History Smoking Status: Never smoker Smokeless Tobacco Status: No Alcohol use: Reports: none Drug use: Reports: none Physical Exam - General Limitations: no limitations General appearance: alert, in no apparent distress - Head Head exam: atraumatic, normocephalic, normal inspection - Eye Eye exam: Present: EOMI - ENT ENT exam: normal exam - Neck Neck exam: Present: normal inspection - Chest Chest inspection: Present: normal inspection, symmetric chest wall rise - Respiratory Respiratory exam: Present: other (Increased rhonchi in the left lower base) - Cardiovascular Cardiovascular exam: Present: regular rate, normal rhythm, normal heart sounds - Abdominal Exam Abdominal exam: Present: soft, Non-Tender. Absent: tenderness, distention, guarding, rebound, rigidity - Extremities Exam Extremities exam: Present: normal inspection, full ROM. Absent: tenderness, pedal edema - Neurological Exam Neurological exam: Present: alert, oriented X3 - Psychiatric Psychiatric exam: Present: normal affect, normal mood - Skin Skin exam: Present: warm, dry, intact, normal color Course Course Narrative: Patient seen and examined. Difficulty breathing and weakness over the last couple days. Patient suspects she has pneumonia. In triage, her oxygen saturation was 90% at rest on room air. She was placed on 2 L nasal cannula and is currently 93%. Suspect patient will need admission just based on her hypoxemia. Cardiopulmonary workup was initiated. We will also get a d-dimer level to evaluate for PE. - Reevaluation(s) Reevaluation #1: Labwork showed an elevated dimer level over 800. CTA of the chest ordered. Chest x-ray does show signs of a right upper lobe pneumonia. We will go ahead and treat with Levaquin for community-acquired pneumonia. Time: 00:12 Reevaluation #2: CTA of the chest shows multifocal pneumonia. No signs of pulmonary embolus. At this time, due to patient's hypoxemia, we will go ahead and admit to the hospital. I discussed with the hospitalist Dr. Gold who has accepted patient for admission. Time: 00:59 Vital Signs Temperature 98.6 F 07/02/18 21:34 Pulse Rate 82 07/02/18 21:34 Respiratory Rate 20 07/02/18 21:34 Blood Pressure 109/60 07/02/18 21:34 O2 Sat by Pulse Oximetry 90 07/02/18 21:34 Temperature 98.6 F 07/02/18 21:34 Pulse Rate 80 07/03/18 00:51 Respiratory Rate 17 07/03/18 00:51 Blood Pressure 161/80 07/03/18 00:51 O2 Sat by Pulse Oximetry 95 07/03/18 00:51 Oxygen Delivery Oxygen Delivery Nasal Cannula Medical Decision Making - Medical Records Medical records reviewed: Yes I reviewed the patient's medical records. - Lab Data Lab results reviewed: Yes I reviewed the patient's lab results. Result diagrams: 07/02/18 22:07 07/02/18 22:07 Lab Results 07/02/18 07/02/18 07/02/18 Range/Units 22:07 22:07 22:07 WBC 14.5 H (4.3-11.1) K/mcL RBC 3.97 (3.82-4.97) M/mcL Hgb 12.5 (11.5-15.4) g/dL Hct 36.6 (35.3-44.9) % MCV 92.2 (83.0-100.0) fL MCH 31.5 (28.0-33.3) pg MCHC 34.2 (31.6-35.5) g/dL RDW 13.0 (11.5-14.5) % Plt Count 263 (140-400) K/mcL MPV 10.6 (9.4-12.4) fL Immature Gran % 0.4 (0-4) % Seg Neutrophils % 76.7 % Lymphocytes % 13.8 % Monocytes % 6.5 % Eosinophils % 2.4 % Basophils % 0.2 % Neutrophils # 11.1 H (1.6-8.9) K/mcL Lymphocytes # 2.0 (0.6-4.6) K/mcL Monocytes # 0.9 (0.0-1.3) K/mcL Eosinophils # 0.4 (0.0-0.6) K/mcL Basophils # 0.0 (0.0-0.2) K/mcL D-Dimer 815 H (0-500) ng/mLFEU Sodium 135 L (136-145) mEq/L Potassium 3.5 (3.5-5.1) mEq/L Chloride 99 (98-107) mEq/L Carbon Dioxide 26 (23-29) mEq/L BUN 17 (8-23) mg/dL Creatinine 0.71 (0.60-1.20) mg/dL Est GFR ( Amer) > 60 (> 60) Est GFR (Non-Af Amer) > 60 (> 60) BUN/Creatinine Ratio 24 (6-26) Glucose 133 H (70-105) mg/dL Calculated Osmolality 283 (280-300) Lactic Acid (0.5-2.2) mmol/L Calcium 9.8 (8.6-10.3) mg/dL Troponin I 0.03 (< 0.04) ng/mL B-Natriuretic Peptide (Less than 100) pg/mL TSH 5.088 (0.340-5.600) mcIU/mL 07/02/18 07/02/18 Range/Units 22:07 22:59 WBC (4.3-11.1) K/mcL RBC (3.82-4.97) M/mcL Hgb (11.5-15.4) g/dL Hct (35.3-44.9) % MCV (83.0-100.0) fL MCH (28.0-33.3) pg MCHC (31.6-35.5) g/dL RDW (11.5-14.5) % Plt Count (140-400) K/mcL MPV (9.4-12.4) fL Immature Gran % (0-4) % Seg Neutrophils % % Lymphocytes % % Monocytes % % Eosinophils % % Basophils % % Neutrophils # (1.6-8.9) K/mcL Lymphocytes # (0.6-4.6) K/mcL Monocytes # (0.0-1.3) K/mcL Eosinophils # (0.0-0.6) K/mcL Basophils # (0.0-0.2) K/mcL D-Dimer (0-500) ng/mLFEU Sodium (136-145) mEq/L Potassium (3.5-5.1) mEq/L Chloride (98-107) mEq/L Carbon Dioxide (23-29) mEq/L BUN (8-23) mg/dL Creatinine (0.60-1.20) mg/dL Est GFR ( Amer) (> 60) Est GFR (Non-Af Amer) (> 60) BUN/Creatinine Ratio (6-26) Glucose (70-105) mg/dL Calculated Osmolality (280-300) Lactic Acid 1.1 (0.5-2.2) mmol/L Calcium (8.6-10.3) mg/dL Troponin I (< 0.04) ng/mL B-Natriuretic Peptide 106 H (Less than 100) pg/mL TSH (0.340-5.600) mcIU/mL - Radiology Data Radiology results reviewed: Yes I reviewed the patient's radiology results. Chest X-Ray 07/02/18 22:16 IMPRESSION: Patchy right upper lobe airspace disease most consistent with pneumonia. Follow-up is recommended. D/ / Karthikeyan Canseco MD / Karthikeyan Canseco MD Interpreting Provider: Karthikeyan Canseco MD Chest CTA 07/02/18 22:35 IMPRESSION: No evidence of a pulmonary embolus. Patchy somewhat nodular airspace disease in the right lung most pronounced in the right upper lobe most consistent with multifocal pneumonia. Follow-up to complete clearing is recommended. D/ / Karthikeyan Canseco MD / Karthikeyan Canseco MD Interpreting Provider: Karthikeyan Canseco MD - EKG Data EKG #1 EKG attestation: Yes I reviewed and interpreted this EKG. EKG results narrative: EKG done at 2223 shows normal sinus rhythm with a rate of [address] elevation noted. Mild T-wave flattening noted in leads V5 and V6. Normal axis.
--- NOTE | 2018-07-03 00:36 | Emergency Department Note ---
Disposition Clinical Impression: Hypoxemia Pneumonia Qualifiers: Pneumonia type: due to unspecified organism Laterality: right Lung location: upper lobe of lung Qualified Code(s): J18.1 - Lobar pneumonia, unspecified organism Disposition: Still a Patient Condition: Fair Referrals: Bernard Key DO [Primary Care Provider] - Forms: ED Satisfaction Letter Weakness HPI - General Chief complaint: ED Weakness Stated complaint: weakness/sob Time Seen by Provider: 07/02/18 21:44 Source: patient Limitations: no limitations Nursing Notes Reviewed: Yes Vital Signs Reviewed: Yes - History of Present Illness Pain Scale: 7 - Related Data Home Medications Medication Instructions Recorded Confirmed Atorvastatin Calcium [Lipitor] 80 mg PO HS 05/25/17 05/25/17 Cilostazol [Pletal] 100 mg PO BID 05/25/17 05/25/17 Citalopram Hydrobromide [Celexa] 40 mg PO DAILY 05/25/17 05/25/17 Estrogens, Conjugated [Premarin] 1.25 mg PO DAILY 05/25/17 05/25/17 Fenofibrate Nanocrystallized 160 mg PO DAILY 05/25/17 05/25/17 [Triglide] Ferrous Sulfate [Iron] 325 mg PO DAILY 05/25/17 05/25/17 Folic Acid 1 mg PO DAILY 05/25/17 05/25/17 Furosemide [Lasix] 80 mg PO DAILY 05/25/17 05/25/17 Gabapentin [Neurontin] 300 mg PO HS 05/25/17 05/25/17 HYDROcodone/Acet 10/325 mg [[place] 1 tab PO TID PRN 05/25/17 05/25/17 10-325 mg] LORazepam [Ativan] 1 mg PO BID PRN 05/25/17 05/25/17 Levothyroxine [Synthroid] [place] [address]/25/17 05/25/17 Metformin HCl [Glucophage] 1,000 mg PO BID 05/25/17 05/25/17 Montelukast [Singulair] 10 mg PO DAILY 05/25/17 05/25/17 Nabumetone [Relafen] 500 mg PO BID PRN 05/25/17 05/25/17 Oxybutynin [Ditropan] 5 mg PO BID 05/25/17 05/25/17 Pantoprazole Sodium [Protonix] 20 mg PO DAILY 05/25/17 05/25/17 Pnv No.118/Iron Fumarate/FA 1 tab PO DAILY 05/25/17 05/25/17 [Se- 19 Chewable Tablet] Potassium Chloride [K-Tab ER] 8 meq PO DAILY 05/25/17 05/25/17 Previous Rx's Medication Instructions Recorded Benazepril HCl [Lotensin] 40 mg PO DAILY #30 tablet 05/26/17 Metoprolol XL (24 HR) Succ [Toprol 75 mg PO DAILY #90 tab.er.24h 05/26/17 Xl] amLODIPine [Norvasc] 10 mg PO DAILY #60 tablet 05/26/17 Allergies Allergy/AdvReac Type Severity Reaction Status Date / Time No Known Allergies Allergy Verified 07/02/18 21:40 Past Medical History - Past Medical History Medical history: Reports: diabetes, hyperlipidemia, hypertension, peripheral artery disease, thyroid disease Psychiatric history: Reports: anxiety 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 - Social History Smoking Status: Never smoker Smokeless Tobacco Status: No Alcohol use: Reports: none Drug use: Reports: none Physical Exam - General Limitations: no limitations General appearance: alert, in no apparent distress Course Vital Signs Temperature 98.6 F 07/02/18 21:34 Pulse Rate 82 07/02/18 21:34 Respiratory Rate 20 07/02/18 21:34 Blood Pressure 109/60 07/02/18 21:34 O2 Sat by Pulse Oximetry 90 07/02/18 21:34 Temperature 98.6 F 07/02/18 21:34 Pulse Rate 79 07/03/18 00:13 Respiratory Rate 20 07/03/18 00:13 Blood Pressure 157/73 07/03/18 00:13 O2 Sat by Pulse Oximetry 92 07/03/18 00:13 Oxygen Delivery Oxygen Delivery Nasal Cannula Weakness - Lab Data Result diagrams: 07/02/18 22:07 07/02/18 22:07 Lab Results 07/02/18 07/02/18 07/02/18 Range/Units 22:07 22:07 22:07 WBC 14.5 H (4.3-11.1) K/mcL RBC 3.97 (3.82-4.97) M/mcL Hgb 12.5 (11.5-15.4) g/dL Hct 36.6 (35.3-44.9) % MCV 92.2 (83.0-100.0) fL MCH 31.5 (28.0-33.3) pg MCHC 34.2 (31.6-35.5) g/dL RDW 13.0 (11.5-14.5) % Plt Count 263 (140-400) K/mcL MPV 10.6 (9.4-12.4) fL Immature Gran % 0.4 (0-4) % Seg Neutrophils % 76.7 % Lymphocytes % 13.8 % Monocytes % 6.5 % Eosinophils % 2.4 % Basophils % 0.2 % Neutrophils # 11.1 H (1.6-8.9) K/mcL Lymphocytes # 2.0 (0.6-4.6) K/mcL Monocytes # 0.9 (0.0-1.3) K/mcL Eosinophils # 0.4 (0.0-0.6) K/mcL Basophils # 0.0 (0.0-0.2) K/mcL D-Dimer 815 H (0-500) ng/mLFEU Sodium 135 L (136-145) mEq/L Potassium 3.5 (3.5-5.1) mEq/L Chloride 99 (98-107) mEq/L Carbon Dioxide 26 (23-29) mEq/L BUN 17 (8-23) mg/dL Creatinine 0.71 (0.60-1.20) mg/dL Est GFR ( Amer) > 60 (> 60) Est GFR (Non-Af Amer) > 60 (> 60) BUN/Creatinine Ratio 24 (6-26) Glucose 133 H (70-105) mg/dL Calculated Osmolality 283 (280-300) Lactic Acid (0.5-2.2) mmol/L Calcium 9.8 (8.6-10.3) mg/dL Troponin I 0.03 (< 0.04) ng/mL B-Natriuretic Peptide (Less than 100) pg/mL 07/02/18 07/02/18 Range/Units 22:07 22:59 WBC (4.3-11.1) K/mcL RBC (3.82-4.97) M/mcL Hgb (11.5-15.4) g/dL Hct (35.3-44.9) % MCV (83.0-100.0) fL MCH (28.0-33.3) pg MCHC (31.6-35.5) g/dL RDW (11.5-14.5) % Plt Count (140-400) K/mcL MPV (9.4-12.4) fL Immature Gran % (0-4) % Seg Neutrophils % % Lymphocytes % % Monocytes % % Eosinophils % % Basophils % % Neutrophils # (1.6-8.9) K/mcL Lymphocytes # (0.6-4.6) K/mcL Monocytes # (0.0-1.3) K/mcL Eosinophils # (0.0-0.6) K/mcL Basophils # (0.0-0.2) K/mcL D-Dimer (0-500) ng/mLFEU Sodium (136-145) mEq/L Potassium (3.5-5.1) mEq/L Chloride (98-107) mEq/L Carbon Dioxide (23-29) mEq/L BUN (8-23) mg/dL Creatinine (0.60-1.20) mg/dL Est GFR ( Amer) (> 60) Est GFR (Non-Af Amer) (> 60) BUN/Creatinine Ratio (6-26) Glucose (70-105) mg/dL Calculated Osmolality (280-300) Lactic Acid 1.1 (0.5-2.2) mmol/L Calcium (8.6-10.3) mg/dL Troponin I (< 0.04) ng/mL B-Natriuretic Peptide 106 H (Less than 100) pg/mL Attestation Statement - Attestation Attestation: I, Miguel Drew, examined this patient and my medical decision-making was reviewed with the REGIONAL TELECOMMUNICATIONS SPECIALIST/PA/Advanced Practice Nurse/Resident Physician. I agree with the documented findings, disposition and treatment plan as described except to the extent set forth below. 62-year-old female presents emergency Department with concerns of increasing shortness of breath, weakness and fatigue. Patient was mildly hypoxic on initial evaluation which improved with nasal cannula. Patient does not use oxygen at home however she does have a history of COPD. Patient had pneumonia present on x-ray. Because of her hypoxia we obtain a d-dimer which was elevated. CTA pending at this time.
[2018-07-03 00:57] LABS: Thyroid Stimulating Hormone 5.088 mcIU/mL (0.340-5.600)
[2018-07-03] MEDS ORDERED: Naloxone 0.4 MG/ML INJ IVP PRN (01:38)
--- NOTE | 2018-07-03 01:45 | Internal Med History&Physical ---
Date of Encounter: 07/03/18 Time of Encounter: 00:30 Internal Medicine - H&P: HPI Chief complaint: cough Admitted From: Home History of present illness: Ms. Nuñez is a 62 year old female with past history of diabetes, ex-smoker, HTN , morbid obesity, presented to the ED with 2 day history of cough. Associated with mild shortness of breath and greenish sputum production. Denies fever/ chills, N/V. No chest pain, palpitation, orthopnea, PND, or leg swelling. Denies any abdominal pain, diarrhea, constipation, dysuria, hematuria or joint pain. No sick contacts or recent hospitalization. In the ER, she was afebrile and hemodynamically stable. However, she required 2 L by NC to maintain saturation above 92%. Initial investigation revealed WBC of 14.5 with left shift, negative troponin, and unremarkable BMP. Chest x-ray and CT chest showed right lung airspace disease, worst in the upper lobe, consistent with multifocal pneumonia. She was started on IV Levaquin and admitted for further management. Past Med Surg Social Fam HX - Past Medical History Attestation: Yes The following information was validated with the patient. Medical history: diabetes, hyperlipidemia, hypertension, peripheral artery disease, thyroid disease Additional medical history: pancreatitis Psychiatric history: anxiety - Past Surgical History Additional surgical history: tubal ligation. pancreatic cysts - Social History Smoking Status: Never smoker Smokeless Tobacco Status: No Alcohol use: none Drug use: none - Family History Mother Living Status: Hx Family Cardiac Disorders: No (cardiac arrest) Internal Medicine - H&P: Meds Atorvastatin Calcium [Lipitor] 80 mg PO HS 05/25/17 [History] Cilostazol [Pletal] 100 mg PO BID 05/25/17 [History] Citalopram Hydrobromide [Celexa] 40 mg PO DAILY 05/25/17 [History] Estrogens, Conjugated [Premarin] 1.25 mg PO DAILY 05/25/17 [History] Fenofibrate Nanocrystallized [Triglide] 160 mg PO DAILY 05/25/17 [History] Ferrous Sulfate [Iron] 325 mg PO DAILY 05/25/17 [History] Folic Acid 1 mg PO DAILY 05/25/17 [History] Furosemide [Lasix] 80 mg PO DAILY 05/25/17 [History] Gabapentin [Neurontin] 300 mg PO HS 05/25/17 [History] HYDROcodone/Acet 10/325 mg [[place] 10-325 mg] 1 tab PO TID PRN 05/25/17 [History] LORazepam [Ativan] 1 mg PO BID PRN 05/25/17 [History] Levothyroxine [Synthroid] [place] [address]/25/17 [History] Metformin HCl [Glucophage] 1,000 mg PO BID 05/25/17 [History] Nabumetone [Relafen] 500 mg PO BID PRN 05/25/17 [History] Oxybutynin [Ditropan] 5 mg PO BID 05/25/17 [History] Pantoprazole Sodium [Protonix] 20 mg PO DAILY 05/25/17 [History] Pnv No.118/Iron Fumarate/FA [Se- 19 Chewable Tablet] 1 tab PO DAILY [History] Potassium Chloride [K-Tab ER] 8 meq PO DAILY 05/25/17 [History] Benazepril HCl [Lotensin] 40 mg PO DAILY #30 tablet 05/26/17 [Rx] Metoprolol XL (24 HR) Succ [Toprol Xl] 75 mg PO DAILY #90 tab.er.24h 05/26/17 [ Rx] amLODIPine [Norvasc] 10 mg PO DAILY #60 tablet 05/26/17 [Rx] 3 Allergy/AdvReac Type Severity Reaction Status Date / Time No Known Allergies Allergy Verified 07/02/18 21:40 All Systems PM: A 10-system review of systems was performed and is negative for pertinent findings except as documented above in the HPI. - Constitutional Vitals: Temp Pulse Resp BP Pulse Ox 98.6 F 80 16 145/89 95 07/02/18 21:34 07/03/18 00:51 07/03/18 01:21 07/03/18 01:21 07/03/18 00:51 Exam: General: Alert and oriented, mild distress HEENT:EOM, pupils equal, round, and reactive. Cardiovascular:Normal S1 & S2, no murmurs or gallops. No JVD. Pulse regular. Lungs: Scattered wheezes R>L, no crackles. Abdomen:Soft, non-tender, no rigidity. Extremities:No deformity, no edema or tenderness, no joint swelling. Neurological:Normal cognition and motor skills. Skin:Normal color, no rash, no lesions. Pulses:Carotid and radial pulses normal +2. Rest of the physical exam is non-contributory Internal Med - H&P Results - Labs CBC & Chem 7: 07/02/18 22:07 07/02/18 22:07 - Assessment and plan (1) Pneumonia Current Visit: Yes Status: Acute Assessment and plan: Imaging findings consistent with multifocal pneumonia. Also has leukocytosis. Wheezing noted on physical exam. We will continue IV Levaquin that was started in ED Add IV Solu-Medrol and bronchodilators. Continue O2 via NC Consider PFT outpatient to evaluate for possible underlying COPD. Qualifiers: Pneumonia type: due to unspecified organism Laterality: right Lung location: upper lobe of lung Qualified Code(s): J18.1 - Lobar pneumonia, unspecified organism (2) Diabetes mellitus Current Visit: No Status: Chronic Assessment and plan: On metformin at home. Will cover with sliding scale insulin, ADA diet. Qualifiers: Diabetes mellitus type: type 2 Diabetes mellitus bottler insulin use: without chcf use Diabetes mellitus complication status: with unspecified complications Qualified Code(s): E11.8 - Type 2 diabetes mellitus with unspecified complications (3) Hypertension Current Visit: No Status: Chronic Assessment and plan: Continue home meds Qualifiers: Hypertension type: essential hypertension Qualified Code(s): I10 - Essential (primary) hypertension (4) DVT prophylaxis Current Visit: No Status: Acute Assessment and plan: Subcutaneous heparin - Time Spent With Patient Total time spent is greater than 50% in coordination of care (as documented) at patient's floor/unit and/or counseling patient:
[2018-07-03] MEDS ORDERED: *HR* Dextrose 50 % in Water (Syg) 50 ML SYRINGE IVP PRN (01:48)
[2018-07-03] MEDS ORDERED: D5% in Water 1,000 ML IVC PRN (01:48)
[2018-07-03] MEDS ORDERED: Dextrose Gel 15 GM/37.5 ML TUBE PO PRN ×2 (01:48)
[2018-07-03] MEDS ORDERED: *HR* LORazepam 1 MG TABLET PO PRN (01:49)
[2018-07-03] MEDS: *HR* HYDROcodone/Acet 10/325 mg TABLET PO PRN ×2 (02:22→17:19)
[2018-07-03] MEDS: MethylPREDNISolone 40 MG/ML VIAL IVP SCH ×2 (03:10→08:37)
[2018-07-03] MEDS: Gabapentin 300 MG CAPSULE PO SCH ×2 (03:19→20:14)
[2018-07-03] MEDS: Ipratropium/Albuterol Neb 3 ML IH SCH ×6 (04:47→23:53)
[2018-07-03 05:57] LABS: Basophils % 0.2 %; Lymphocytes % 14.9 %; Mean Platelet Volume 10.9 fL (9.4-12.4)
[2018-07-03 06:04] LABS: Eosinophils # 0.4 K/mcL (0.0-0.6); Eosinophils % 3.6 %; Hematocrit 34.5 % (35.3-44.9); Hemoglobin 11.4 g/dL (11.5-15.4); Immature Granulocytes % 0.5 % (0-4); Immature Platelets 4.4 % (1.1-6.1); Lymphocytes # 1.6 K/mcL (0.6-4.6); Mean Corpuscular Hemoglobin 31.2 pg (28.0-33.3); Mean Corpuscular Volume 94.5 fL (83.0-100.0); Monocytes # 0.6 K/mcL (0.0-1.3); Monocytes % 5.6 %; Neutrophils # 8.3 K/mcL (1.6-8.9); Nucleated Red Blood Cells 0.2 /100 WBC (0); Platelet Count 217 K/mcL (140-400); Red Blood Count 3.65 M/mcL (3.82-4.97); Red Cell Distribution Width 13.3 % (11.5-14.5); Segmented Neutrophils % 75.2 %
[2018-07-03] MEDS: *HR* Heparin 5,000 UNIT/ML VIAL SQ SCH ×3 (06:08→20:15)
[2018-07-03 06:25] LABS: Platelet Estimate Normal (Normal)
[2018-07-03 06:45] LABS: BUN/Creatinine Ratio 29 (6-26); Blood Urea Nitrogen 17 mg/dL (8-23); Calcium 9.2 mg/dL (8.6-10.3); Carbon Dioxide 18 mEq/L (23-29); Chloride 101 mEq/L (98-107); Glucose 121 mg/dL (70-105); Magnesium 1.3 mg/dL (1.6-2.6); Osmolality,Calculated 283 (280-300); Potassium 4.3 mEq/L (3.5-5.1); Sodium 135 mEq/L (136-145); eGFR For Non-African Americans > 60 (> 60)
[2018-07-03] MEDS: Furosemide 40 MG TABLET PO SCH (08:27)
[2018-07-03] MEDS: Prenatal Vit/FA 1 EACH TABLET PO SCH (08:28)
[2018-07-03] MEDS: Fenofibrate 54 MG TABLET PO SCH (08:29)
[2018-07-03] MEDS: Folic Acid 1 MG TABLET PO SCH (08:29)
[2018-07-03] MEDS: Potassium Chloride Elixir 20 MEQ/15 ML UDC PO SCH (08:30)
[2018-07-03] MEDS: Insulin LISPRO 300 UNITS/3 ML VIAL SQ SCH ×4 (08:34→22:18)
[2018-07-03] MEDS: Lisinopril 20 MG TABLET PO SCH (12:58)
[2018-07-03] MEDS: amLODIPine 5 MG TABLET PO SCH (12:58)
[2018-07-03] MEDS: Metoprolol XL (24 HR) Succ 25 MG TAB.ER.24H PO SCH (12:58)
--- NOTE | 2018-07-03 13:22 | Internal Med Progress Note ---
Hospitalist Progress Note - Encounter Date of Encounter: 07/03/18 Time of Encounter: 13:19 - Subjective Interval History: Patient seen and examined at bedside today, no acute changes. She is continuing to report Weakness and fatigue as well as cough productive of green sputum. Denies any additional concerns at this time. Discussed plan of care with the patient who verbalized understanding denies any further questions at this time. - Exam Vitals: Temp Pulse Resp BP Pulse Ox 97.4 F L 74 17 142/60 96 07/03/18 11:32 07/03/18 11:32 07/03/18 11:32 07/03/18 11:32 07/03/18 11:32 Exam: PHYSICAL EXAMINATION: GENERAL: The patient is an ill appearing female with with no apparent distress. She is alert and oriented x3. HEENT: Head is normocephalic and atraumatic. Extraocular muscles are intact. Pupils are equal, round, and reactive to light and accommodation. Nares appeared normal. Mouth is well hydrated and without lesions. Mucous membranes are moist. NECK: Supple. No carotid bruits. No lymphadenopathy or thyromegaly. LUNGS: Scattered wheezes right greater than left, no rales HEART: Regular rate and rhythm grade 2 murmur murmur. No JVD noted ABDOMEN: Soft, nontender, and nondistended. Positive bowel sounds. No hepatosplenomegaly was noted. EXTREMITIES: Without any cyanosis, clubbing, rash, lesions. +1 pitting edema NEUROLOGIC: Cranial nerves II through XII are grossly intact. PSYCHIATRIC: Flat affect, but denies suicidal or homicidal ideations. SKIN: No ulceration or induration present. - Assessment and Plan (1) Pneumonia Current Visit: Yes Status: Acute Assessment and Plan: Presented with dyspnea, fatigue, generalized weakness, and cough productive of green sputum No recent hospital stays or ABX use CXR findings consistent with multifocal pneumonia. Also has leukocytosis. Continues to have Wheezing per auscultation Does not appear short of breath at rest but continues to report dyspnea with exertion Currently on 3 L nasal cannula, does not wear oxygen at home, no history of structural lung disease Continue IV Levaquin--obtain sputum cultures, obtain Legionella and Mycoplasma antigen-- Continue IV Solu-Medrol and bronchodilators. Continue O2 via NC--titrate as tolerated Consider PFT outpatient to evaluate for possible underlying COPD. (2) Diabetes mellitus Current Visit: No Status: Chronic Assessment and Plan: per hx glucose elevated; likely d/t iv steroids a1c 6.4 increase ssic to high (3) Hypertension Current Visit: No Status: Chronic Assessment and Plan: stable, Continue home meds (4) DVT prophylaxis Current Visit: No Status: Acute Assessment and Plan: heparin sq - Time Spent with Patient Total time spent is greater than 50% in coordination of care (as documented) at patient's floor/unit and/or counseling patient: less than 15 minutes Plan of Care Discussed with: patient Internal Medicine: Result - Labs CBC & Chem 7: 07/03/18 04:16 07/03/18 04:16 Labs: Short CBC 07/03/18 Range/Units 04:16 WBC 11.0 (4.3-11.1) K/mcL Hgb 11.4 L (11.5-15.4) g/dL Hct 34.5 L (35.3-44.9) % Plt Count 217 (140-400) K/mcL Neutrophils # 8.3 (1.6-8.9) K/mcL BMP 07/03/18 04:16 Sodium 135 L Potassium 4.3 Chloride 101 Carbon Dioxide 18 L BUN 17 Creatinine 0.59 L Glucose 121 H Calcium 9.2 - ABG Interpretation ABG results: PT/INR, D-dimer D-Dimer 815 ng/mLFEU (0-500) H 07/02/18 22:07 Consult Discharge Plan - Plan Referrals: Bernard Key DO [Primary Care Provider] - (Your appointment has been requested. 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
--- NOTE | 2018-07-03 17:11 | Electrocardiograph Report ---
[address] [place], [place] [address] Test Date: 2018-07-02 Pat Name: Tatiana Nuñez Department: 103 Room: 3B12 Gender: F Slip Presser: KEHINDER : 1955 Requested By: Laquita Restrepo Order Number: [id number] Reading MD: Jonathan Guadarrama Measurements Intervals [place] Rate: 78 P: 64 ND: 184 QRS: 15 QRSD: 78 T: 76 QT: 376 QTc: 409 Interpretive Statements SINUS RHYTHM SEPTAL MYOCARDIAL INFARCTION, PROBABLY OLD Electronically Signed On 07-03-2018 17:10:30 EDT by Jonathan Guadarrama
[2018-07-03] MEDS ORDERED: Gabapentin 300 MG CAPSULE PO SCH (21:00)
[2018-07-03] MEDS ORDERED: Insulin LISPRO 300 UNITS/3 ML VIAL SQ SCH (21:00)
[2018-07-03] MEDS: Levofloxacin 750 MG/150 ML 750 MG/150 ML BAG IVPB SCH (23:40)
[2018-07-04] MEDS: *HR* HYDROcodone/Acet 10/325 mg TABLET PO PRN ×3 (02:21→22:11)
[2018-07-04] MEDS: Ipratropium/Albuterol Neb 3 ML IH SCH ×6 (04:36→23:25)
[2018-07-04] MEDS: *HR* Heparin 5,000 UNIT/ML VIAL SQ SCH ×3 (05:05→20:38)
[2018-07-04] MEDS: Levofloxacin 750 MG/150 ML 750 MG/150 ML BAG IVPB SCH (08:26)
[2018-07-04] MEDS: Insulin LISPRO 300 UNITS/3 ML VIAL SQ SCH ×4 (08:26→20:39)
[2018-07-04] MEDS: Lisinopril 20 MG TABLET PO SCH (08:27)
[2018-07-04] MEDS: Furosemide 40 MG TABLET PO SCH (08:27)
[2018-07-04] MEDS: Folic Acid 1 MG TABLET PO SCH (08:27)
[2018-07-04] MEDS: Metoprolol XL (24 HR) Succ 25 MG TAB.ER.24H PO SCH (08:27)
[2018-07-04] MEDS: Potassium Chloride Elixir 20 MEQ/15 ML UDC PO SCH (08:28)
[2018-07-04] MEDS: MethylPREDNISolone 40 MG/ML VIAL IVP SCH (08:28)
[2018-07-04] MEDS: Prenatal Vit/FA 1 EACH TABLET PO SCH (08:28)
[2018-07-04] MEDS: amLODIPine 5 MG TABLET PO SCH (08:28)
[2018-07-04] MEDS: Fenofibrate 54 MG TABLET PO SCH (08:28)
[2018-07-04 10:44] LABS: Basophils % 0.1 %; Eosinophils # 0.1 K/mcL (0.0-0.6); Eosinophils % 1.6 %; Hematocrit 36.8 % (35.3-44.9); Hemoglobin 12.5 g/dL (11.5-15.4); Immature Granulocytes % 0.5 % (0-4); Lymphocytes # 1.6 K/mcL (0.6-4.6); Lymphocytes % 18.3 %; Mean Corpuscular Volume 94.1 fL (83.0-100.0); Mean Platelet Volume 10.9 fL (9.4-12.4); Monocytes # 0.5 K/mcL (0.0-1.3); Monocytes % 5.6 %; Neutrophils # 6.5 K/mcL (1.6-8.9); Platelet Count 245 K/mcL (140-400); Red Blood Count 3.91 M/mcL (3.82-4.97); Segmented Neutrophils % 73.9 %
[2018-07-04 10:58] LABS: BUN/Creatinine Ratio 41 (6-26); Blood Urea Nitrogen 26 mg/dL (8-23); Calcium 9.6 mg/dL (8.6-10.3); Carbon Dioxide 26 mEq/L (23-29); Chloride 100 mEq/L (98-107); Glucose 240 mg/dL (70-105); Osmolality,Calculated 295 (280-300); Potassium 3.5 mEq/L (3.5-5.1); Sodium 136 mEq/L (136-145); eGFR For Non-African Americans > 60 (> 60)
--- NOTE | 2018-07-04 14:02 | Internal Med Progress Note ---
Hospitalist Progress Note - Encounter Date of Encounter: 07/04/18 Time of Encounter: 13:00 - Exam Vitals: Patient seen and examined at bedside today with no acute changes. Pt. continues to report weakness, fatigue, SOB, as well as cough. States that cough is worse at night and is keeping her awake. Will add Mucinex scheduled. Denies any additional concerns at this time. Discussed plan of care with the patient who verbalized understanding denies any further questions at this time. Temp Pulse Resp BP Pulse Ox 97.6 F 78 16 159/66 98 07/04/18 11:31 07/04/18 11:31 07/04/18 11:38 07/04/18 11:31 07/04/18 11:38 - Assessment and Plan (1) Pneumonia Current Visit: Yes Status: Acute Assessment and Plan: Pt. presented with dyspnea, fatigue, generalized weakness, and cough productive of green sputum No recent hospital stays or ABX use CXR findings consistent with multifocal pneumonia. WBC 8.8 today. Continues to have Wheezing per auscultation. Continue DuoNebs. Does not appear short of breath at rest but continues to report dyspnea with exertion Currently on 3 L nasal cannula, does not wear oxygen at home, no history of structural lung disease Continue IV Levaquin--Sputum cultures and Legionella antigen negative. Awaiting mycoplasma pneumonia results Continue IV Solu-Medrol and bronchodilators. Monitor BG. Continue O2 via NC--titrate as tolerated Consider PFT outpatient to evaluate for possible underlying COPD. (2) Diabetes mellitus Current Visit: No Status: Chronic Assessment and Plan: per hx glucose elevated; likely d/t iv steroids a1c 6.4 increase ssic to high (3) Hypertension Current Visit: No Status: Chronic Assessment and Plan: Currently stable, Continue home meds. (4) DVT prophylaxis Current Visit: No Status: Acute Assessment and Plan: Continue heparin SQ. - Time Spent with Patient Total time spent is greater than 50% in coordination of care (as documented) at patient's floor/unit and/or counseling patient: less than 15 minutes Plan of Care Discussed with: family Internal Medicine: Result - Labs CBC & Chem 7: 07/04/18 09:59 07/04/18 09:59 Labs: Short CBC 07/04/18 Range/Units 09:59 WBC 8.8 (4.3-11.1) K/mcL Hgb 12.5 (11.5-15.4) g/dL Hct 36.8 (35.3-44.9) % Plt Count 245 (140-400) K/mcL Neutrophils # 6.5 (1.6-8.9) K/mcL BMP 07/04/18 09:59 Sodium 136 Potassium 3.5 Chloride 100 Carbon Dioxide 26 BUN 26 H Creatinine 0.63 Glucose 240 H Calcium 9.6 - ABG Interpretation ABG results: PT/INR, D-dimer D-Dimer 815 ng/mLFEU (0-500) H 07/02/18 22:07 Consult Discharge Plan - Plan Referrals: Bernard Key DO [Primary Care Provider] - 07/09/18 10:30 am () (1) Pneumonia Qualifiers: Pneumonia type: due to unspecified organism Laterality: right Lung location : upper lobe of lung Qualified Code(s): J18.1 - Lobar pneumonia, unspecified organism (2) Diabetes mellitus Qualifiers: Diabetes mellitus type: type 2 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
[2018-07-04] MEDS: Gabapentin 300 MG CAPSULE PO SCH (20:38)
[2018-07-05] MEDS: Ipratropium/Albuterol Neb 3 ML IH SCH ×4 (03:34→16:03)
[2018-07-05 04:24] LABS: Basophils % 0.1 %; Eosinophils # 0.1 K/mcL (0.0-0.6); Eosinophils % 1.2 %; Hematocrit 32.1 % (35.3-44.9); Immature Granulocytes % 0.4 % (0-4); Lymphocytes # 2.7 K/mcL (0.6-4.6); Mean Corpuscular HGB Conc 33.3 g/dL (31.6-35.5); Mean Corpuscular Hemoglobin 30.9 pg (28.0-33.3); Mean Corpuscular Volume 92.8 fL (83.0-100.0); Mean Platelet Volume 10.9 fL (9.4-12.4); Monocytes # 0.8 K/mcL (0.0-1.3); Monocytes % 7.3 %; Neutrophils # 6.7 K/mcL (1.6-8.9); Platelet Count 265 K/mcL (140-400); Red Blood Count 3.46 M/mcL (3.82-4.97); Red Cell Distribution Width 13.1 % (11.5-14.5)
[2018-07-05 04:25] LABS: Hemoglobin 10.7 g/dL (11.5-15.4)
[2018-07-05 04:45] LABS: Alanine Aminotransferase 18 Units/L (7-52); Albumin 3.6 g/dL (3.5-5.7); Albumin/Globulin Ratio 1.2 (1.1-2.2); Alkaline Phosphatase 40 Units/L (34-104); Aspartate Amino Transferase 26 Units/L (13-39); BUN/Creatinine Ratio 52 (6-26); Bilirubin,Total 0.3 mg/dL (0.3-1.0); Blood Urea Nitrogen 32 mg/dL (8-23); Calcium 9.9 mg/dL (8.6-10.3); Carbon Dioxide 26 mEq/L (23-29); Chloride 103 mEq/L (98-107); Glucose 126 mg/dL (70-105); Osmolality,Calculated 292 (280-300); Potassium 4.2 mEq/L (3.5-5.1); Sodium 137 mEq/L (136-145); Total Protein 6.6 g/dL (6.4-8.9); eGFR For Non-African Americans > 60 (> 60)
[2018-07-05] MEDS: *HR* Heparin 5,000 UNIT/ML VIAL SQ SCH ×2 (05:16→12:18)
[2018-07-05] MEDS: Insulin LISPRO 300 UNITS/3 ML VIAL SQ SCH ×2 (08:16→12:19)
[2018-07-05] MEDS: Levofloxacin 750 MG/150 ML 750 MG/150 ML BAG IVPB SCH (09:46)
[2018-07-05] MEDS: Potassium Chloride Elixir 20 MEQ/15 ML UDC PO SCH (09:46)
[2018-07-05] MEDS: Furosemide 40 MG TABLET PO SCH (09:46)
[2018-07-05] MEDS: Fenofibrate 54 MG TABLET PO SCH (09:47)
[2018-07-05] MEDS: Metoprolol XL (24 HR) Succ 25 MG TAB.ER.24H PO SCH (09:47)
[2018-07-05] MEDS: Prenatal Vit/FA 1 EACH TABLET PO SCH (09:47)
[2018-07-05] MEDS: amLODIPine 5 MG TABLET PO SCH (09:47)
[2018-07-05] MEDS: Lisinopril 20 MG TABLET PO SCH (09:47)
[2018-07-05] MEDS: Folic Acid 1 MG TABLET PO SCH (09:47)
[2018-07-05] MEDS: MethylPREDNISolone 40 MG/ML VIAL IVP SCH (09:48)
--- NOTE | 2018-07-05 13:14 | Discharge Summary ---
- NOTES TO OUTPATIENT PROVIDER Notes to Outpatient Provider: Patient admitted w/PNA required O2 while inpt. Pt. continues to experience drops in SpO2 w/ambulation/exertion. Will benefit from home O2, home nebulizers. Orders not resulted at time of discharge: Pending orders 07/03/18 13:41 Mycoplasma pneumoniae IgG IgM Routine 07/06/18 04:00 CMP [Comprehensive Metabolic Panel] AM 0400 Complete Blood Count [HEME] AM 0400 07/07/18 04:00 CMP [Comprehensive Metabolic Panel] AM 0400 Complete Blood Count [HEME] AM 0400 Date of Encounter: 07/05/18 Time of Encounter: 12:00 - Discharge Diagnosis (1) Pneumonia Priority: Primary Status: Acute Assessment and Plan: CXR today shows interval resolution of right upper lobe airspace disease and mild pulmonary vascular congestion. Pt. originally presented with dyspnea, fatigue, generalized weakness, and cough productive of green sputum. Initial CXR findings consistent with multifocal pneumonia. Continue DuoNebs @ home. Pt. continues to report dyspnea with exertion Does not wear oxygen at home, no history of structural lung disease Sputum cultures and Legionella antigen negative. Awaiting mycoplasma pneumonia results Continue PO levaquin x4 days on discharge Set up home O2 for pt. d/t continued SOB w/exertion--titrate as tolerated Consider PFT outpatient to evaluate for possible underlying COPD. Qualifiers: Pneumonia type: due to unspecified organism Laterality: right Lung location: upper lobe of lung Qualified Code(s): J18.1 - Lobar pneumonia, unspecified organism (2) SOB (shortness of breath) on exertion Priority: Primary Status: Acute Assessment and Plan: Acute SOB w/exertion. Pt. qualifies for home O2 based on SpO2 drop to 80s w/ ambulation. Pt. should also receive nebulizer and medications to complete home therapy post-discharge. (3) Diabetes mellitus Priority: Secondary Status: Chronic Assessment and Plan: Hx of chronic DM Glucose elevated while inpt; likely d/t iv steroids Set up home BG checks if not already available through PCP A1c 6.4 Qualifiers: Diabetes mellitus type: type 2 Diabetes mellitus petroleum terminal plant operator insulin use: without petroleum terminal plant operator use Diabetes mellitus complication status: with unspecified complications Qualified Code(s): E11.8 - Type 2 diabetes mellitus with unspecified complications (4) Hypertension Priority: Secondary Status: Chronic Assessment and Plan: Currently stable, Continue home meds. Qualifiers: Hypertension type: essential hypertension Qualified Code(s): I10 - Essential (primary) hypertension Hospital course: Ms. Nuñez is a 62 year old female who presented w/PNA and SOB on admission. CXR showed patchy right upper lobe airspace disease most consistent with pneumonia. Pt. denied recent hospitalization or abx use. Pt. also denied home O2 use. Required nebulizer txs while inpt. CXR today shows interval resolution of right upper lobe airspace disease and mild pulmonary vascular congestion. Patient received IVPB Levaquin 750 mg daily while inpatient and we will continue by mouth Levaquin 750 daily 5 days on discharge. Patient instructed to follow-up with PCP within 1 week. Pt. also qualifies for home O2 use and needs nebulizer and medication for continued txs until resolution. Discharge discussed with: patient - Time Spent with Patient Total time spent providing and/or coordinating discharge services: Less than 30 minutes Specific discharge activities: Patient to follow up w/PCP w/i one week to assess for PNA resolution. Pt. will require home O2 and nebulizer for continued therapy until resolution. - Discharge Medications Prescriptions: levoFLOXacin [Levaquin] 750 mg PO DAILY 5 Days #5 tablet Oxygen 1 each .ROUTE PRN PRN #1 each PRN Reason: Shortness Of Breath Home Medications: Atorvastatin Calcium [Lipitor] 80 mg PO HS 05/25/17 [History] Cilostazol [Pletal] 100 mg PO BID 05/25/17 [History] Citalopram Hydrobromide [Celexa] 40 mg PO HS 05/25/17 [History] Estrogens, Conjugated [Premarin] 1.25 mg PO HS 05/25/17 [History] Fenofibrate Nanocrystallized [Triglide] 160 mg PO DAILY 05/25/17 [History] Ferrous Sulfate [Iron] 325 mg PO DAILY 05/25/17 [History] Folic Acid 1 mg PO DAILY 05/25/17 [History] Furosemide [Lasix] 80 mg PO DAILY 05/25/17 [History] Gabapentin [Neurontin] 300 mg PO HS 05/25/17 [History] HYDROcodone/Acet 10/325 mg [[place] 10-325 mg] 1 tab PO TID PRN 05/25/17 [History] LORazepam [Ativan] 1 mg PO BID PRN 05/25/17 [History] Nabumetone [Relafen] 500 mg PO BID PRN 05/25/17 [History] Oxybutynin [Ditropan] 5 mg PO BID 05/25/17 [History] Pantoprazole Sodium [Protonix] 20 mg PO HS 05/25/17 [History] Pnv No.118/Iron Fumarate/FA [Se- 19 Chewable Tablet] 1 tab PO HS 05/25/17 [ History] Potassium Chloride [K-Tab ER] 8 meq PO DAILY 05/25/17 [History] Metoprolol XL (24 HR) Succ [Toprol Xl] 75 mg PO DAILY #90 tab.er.24h 05/26/17 [ Rx] Amlodipine Besylate/Benazepril [Lotrel 5-40 mg Capsule] 1 cap PO DAILY 07/03/18 [History] Levothyroxine [Synthroid] 175 mcg PO DAILY 07/03/18 [History] Metformin HCl [Metformin HCl ER] 1,000 mg PO QPM 07/03/18 [History] Montelukast [Singulair] 10 mg PO DAILY 07/03/18 [History] Oxygen 1 each .ROUTE PRN PRN #1 each 07/05/18 [Rx] levoFLOXacin [Levaquin] 750 mg PO DAILY 5 Days #5 tablet 07/05/18 [Rx] Allergies/Adverse Reactions: 3 Allergy/AdvReac Type Severity Reaction Status Date / Time No Known Allergies Allergy Verified 07/02/18 21:40 Date of admission: 07/03/18 01:10 Primary care physician: Bernard Key, Consults: 07/03/18 01:39 Consult to Physical Therapy [CONS] Routine Comment: Evaluate, develop and implement POC Reason for Consult: pneumonia, evaluate for gait stability Does patient have active BEDREST order?: No Is patient medically & hemodynamically stable?: Yes Discharging clinician: Bernard Wang Anticipated date of discharge: 07/05/18 - Constitutional Vitals: Temp Pulse Resp BP Pulse Ox 97.5 F L 79 16 158/63 95 07/05/18 12:01 07/05/18 12:01 07/05/18 12:01 07/05/18 12:01 07/05/18 12:37 General appearance: Present: cooperative, mild distress (SOB w/exertion), A&O X 3, morbidly obese, pleasant, answers questions appropriately. Absent: loss of weight - Head Head exam: Present: atraumatic, normocephalic - Eye Eye exam: Present: PERRL, conjuntiva pink, sclera anicteric Pupils: Present: PERRL - ENT ENT exam: Present: normal exam - Neck Neck exam general surgery: Present: supple, trachea midline. Absent: lymphadenopathy - Respiratory Respiratory exam: Present: CTAB. Absent: accessory muscle use, rales, rhonchi, wheezes - Cardiovascular Cardiovascular exam: Present: RRR, +S1, +S2. Absent: diastolic murmur, gallop, rubs, systolic murmur - GI/Abdominal GI/Abdominal exam: Present: normal bowel sounds, soft, no peritoneal signs. Absent: distended, tenderness - Rectal Rectal exam: Present: deferred - Additional comments: exam deferred. - Extremities Exam Extremities exam: Present: pedal edema, warm, radial pulses palpable and symmetrical. Absent: calf tenderness, cyanotic - Back Exam Back exam: Present: normal inspection - Neurological Exam Neurological exam: Present: alert, CN II-XII intact, oriented X3, no focal deficits. Absent: pronater drift, facial droop, speech deficit - Psychiatric Psychiatric exam: Present: normal affect, normal mood - Skin Skin exam: Present: dry, intact - Patient Status Disposition: Home, Self-Care Condition: Fair Functional capacity at discharge: independent ambulation Overall status at discharge: patient is progressing back to baseline - Discharge Instructions Follow Up With: Bernard Key DO [Primary Care Provider] - 07/09/18 10:30 am () - Diet and Activity Activity: increase activity as tolerated, other (O2 at home PRN for shortness of breath d/t drops in SpO2 w/exertion) Diet: diabetic diet
[2018-07-05 15:07] VITALS: BP 159/72
[2018-07-08 09:20] LABS: Mycoplasma pneumoniae IgG 0.45 U/L (<=0.09)
== END 2018-07-05 16:54 | disposition home or self-care (01) ==
LOC: 3BNU 21:27 → EMEROO 21:27 → 3BNU 07-03 01:23
PROVIDERS: ADMIT Internal Medicine; ATTEND Internal Medicine

== ENCOUNTER 2020-06-03 06:20 | Inpatient (IN) ==
[~2020-06-03 06:20] MED LIST: Vancomycin 1,000 MG, Sodium Chloride IRRigation 1,000 ML IR ONE
[2020-06-03] MEDS ORDERED: Vancomycin 1,750 MG/517.5 ML IV.SOLN IVPB ONE ×2 (06:37→19:00)
[2020-06-03] MEDS ORDERED: CeFAZolin Syr 3,000MG/30 ML 3,000 MG/30 ML SYRINGE IVPB ONE (06:37)
[2020-06-03] MEDS ORDERED: Ringers Solution, Lactated 1,000 ML IVC SCH (06:45)
[2020-06-03] MEDS ORDERED: Heparin 1,000 UNITS/500 mL 1,000 ML ONE (06:46)
[2020-06-03] MEDS ORDERED: Vancomycin 1,000 MG VIAL ONE (06:48)
[2020-06-03] MEDS ORDERED: Acetaminophen IV 1,000 MG/100 ML BAG IVPB ONE ×2 (06:57)
[2020-06-03] MEDS ORDERED: Famotidine 20 MG/2 ML VIAL IVP ONE (06:57)
[2020-06-03] MEDS ORDERED: *HR* Midazolam HCl 2 MG/2 ML VIAL ONE (07:14)
[2020-06-03] MEDS ORDERED: *HR* FentaNYL (PF) 100 MCG/2 ML VIAL ONE (07:14)
[2020-06-03] MEDS ORDERED: *HR* Propofol 200 MG/20 ML VIAL IVP ONE (07:14)
[2020-06-03] MEDS ORDERED: *HR* Remifentanil 2 MG VIAL IVP ONE ×2 (07:15→08:37)
[2020-06-03] MEDS ORDERED: *HR* Phenylephrine 10 MG/ML VIAL ONE (07:15)
[2020-06-03] MEDS ORDERED: Lidocaine -MPF 2% 2 ML VIAL ONE ×3 (07:18→07:59)
[2020-06-03] MEDS ORDERED: *HR* Labetalol 20 MG/4 ML SYRINGE IVP PRN (07:20)
[2020-06-03] MEDS ORDERED: *HR* OxyCODONE Immed Rel 5 MG TABLET PO PRN ×2 (07:20→14:26)
[2020-06-03] MEDS ORDERED: *HR* HYDROmorphone PF 0.5 MG/0.5 ML SYRINGE IVP PRN (07:20)
[2020-06-03] MEDS ORDERED: Ondansetron 4 MG/2 ML VIAL IVP ONE (07:20)
[2020-06-03] MEDS ORDERED: *HR* Promethazine 25 MG/ML VIAL IVP PRN (07:20)
[2020-06-03] MEDS ORDERED: *HR* Vasopressin 20 UNIT/ML VIAL ONE (07:27)
[2020-06-03] MEDS ORDERED: Heparin 1,000 UNITS/500 mL 500 ML ONE (07:29)
[2020-06-03] MEDS ORDERED: Dexamethasone 4 MG/ML VIAL ONE (08:58)
[2020-06-03] MEDS ORDERED: *HR* Rocuronium Bromide 50 MG/5 ML VIAL ONE ×2 (10:05→13:43)
[2020-06-03] MEDS ORDERED: *HR* Heparin 5,000 UNIT/ML VIAL ONE ×2 (10:58→11:22)
[2020-06-03] MEDS ORDERED: Ondansetron 4 MG/2 ML VIAL ONE (12:09)
[2020-06-03] MEDS ORDERED: *HR* HYDROMORPHONE 2 MG/ML VIAL ONE (12:23)
[2020-06-03] MEDS ORDERED: Naloxone 0.4 MG/ML INJ IVP PRN (14:26)
[2020-06-03] MEDS ORDERED: Ondansetron 4 MG/2 ML VIAL IVP PRN (14:26)
[2020-06-03] MEDS ORDERED: Dextrose Gel 15 GM/37.5 ML TUBE PO PRN ×2 (14:26)
[2020-06-03] MEDS ORDERED: *HR* Dextrose 50 % in Water (Vial) 50 ML VIAL IVP PRN (14:26)
[2020-06-03] MEDS ORDERED: D5% in Water 1,000 ML IVC PRN (14:26)
[2020-06-03] MEDS ORDERED: Acetaminophen 325 MG TABLET PO PRN ×2 (14:26)
[2020-06-03] MEDS ORDERED: 0.9 % Sodium Chloride 1,000 ML IVC SCH (14:26)
[2020-06-03] MEDS ORDERED: *HR* HYDROcodone/Acet 5/325 mg TABLET PO PRN (14:26)
[2020-06-03] MEDS: ceFAZolin 3,000 MG in 0.9 % Sodium Chloride 100 ML IVPB SCH (16:18)
[2020-06-03] MEDS: Insulin LISPRO 300 UNITS/3 ML VIAL SQ SCH ×2 (16:21→19:26)
[2020-06-03] MEDS: *HR* Metoprolol 5 MG/5 ML VIAL IVP SCH (16:23)
[2020-06-03] MEDS: *HR* LORazepam 1 MG TABLET PO PRN (22:28)
[2020-06-03] MEDS: *HR* HYDROcodone/Acet 5/325 mg TABLET PO PRN (22:56)
[2020-06-04] MEDS: ceFAZolin 3,000 MG in 0.9 % Sodium Chloride 100 ML IVPB SCH (00:02)
[2020-06-04] MEDS: *HR* Metoprolol 5 MG/5 ML VIAL IVP SCH ×2 (00:02→05:06)
[2020-06-04] MEDS: *HR* OxyCODONE Immed Rel 5 MG TABLET PO PRN ×2 (03:16→14:29)
[2020-06-04 05:00] LABS: Basophils % 0.4 %; Eosinophils # 0.3 K/mcL (0.0-0.6); Eosinophils % 2.7 %; Hematocrit 32.2 % (35.3-44.9); Hemoglobin 10.1 g/dL (11.5-15.4); Immature Granulocytes % 0.2 % (0-4); Lymphocytes # 2.2 K/mcL (0.6-4.6); Lymphocytes % 22.6 %; Mean Corpuscular HGB Conc 31.4 g/dL (31.6-35.5); Mean Corpuscular Hemoglobin 30.3 pg (28.0-33.3); Mean Corpuscular Volume 96.7 fL (83.0-100.0); Mean Platelet Volume 10.6 fL (9.4-12.4); Monocytes # 0.8 K/mcL (0.0-1.3); Monocytes % 7.9 %; Neutrophils # 6.5 K/mcL (1.6-8.9); Platelet Count 280 K/mcL (140-400); Red Blood Count 3.33 M/mcL (3.82-4.97); Red Cell Distribution Width 13.5 % (11.5-14.5); Segmented Neutrophils % 66.2 %; White Blood Count 9.9 K/mcL (4.3-11.1)
[2020-06-04] MEDS: *HR* Heparin 5,000 UNIT/ML VIAL SQ SCH ×2 (05:06→18:31)
[2020-06-04 05:17] LABS: BUN/Creatinine Ratio 33 (6-26); Blood Urea Nitrogen 17 mg/dL (8-23); Calcium 8.9 mg/dL (8.6-10.3); Carbon Dioxide 26 mEq/L (23-29); Chloride 101 mEq/L (98-107); Glucose 133 mg/dL (70-105); Osmolality,Calculated 287 (280-300); Potassium 3.9 mEq/L (3.5-5.1); Sodium 137 mEq/L (136-145); eGFR For African Americans > 60 (> 60); eGFR For Non-African Americans > 60 (> 60)
[2020-06-04] MEDS ORDERED: *HR* Heparin 5,000 UNIT/ML VIAL SQ SCH (06:00)
[2020-06-04] MEDS: lisinopriL 20 MG TABLET PO SCH (08:34)
[2020-06-04] MEDS: Fenofibrate 54 MG TABLET PO SCH ×3 (08:34→20:05)
[2020-06-04] MEDS: Folic Acid 1 MG TABLET PO SCH (08:34)
[2020-06-04] MEDS: amLODIPine 5 MG TABLET PO SCH (08:34)
[2020-06-04] MEDS: Gabapentin 300 MG CAPSULE PO SCH ×3 (08:34→20:05)
[2020-06-04] MEDS: Furosemide 40 MG TABLET PO SCH (08:34)
[2020-06-04] MEDS: Metoprolol XL (24 HR) Succ 25 MG TAB.ER.24H PO SCH (08:34)
[2020-06-04] MEDS: Insulin LISPRO 300 UNITS/3 ML VIAL SQ SCH ×4 (08:35→19:51)
[2020-06-04] MEDS ORDERED: NON-FORMULARY MEDICATION 1 EACH EACH (Amlodipine Besylate/Benazepril [Amlodipine-Benazepri PO SCH (09:00)
[2020-06-04] MEDS: *HR* HYDROcodone/Acet 5/325 mg TABLET PO PRN ×2 (09:32→18:37)
[2020-06-05] MEDS: *HR* OxyCODONE Immed Rel 5 MG TABLET PO PRN ×3 (02:00→21:26)
[2020-06-05] MEDS: *HR* Heparin 5,000 UNIT/ML VIAL SQ SCH ×2 (05:04→17:22)
[2020-06-05] MEDS: lisinopriL 20 MG TABLET PO SCH (08:11)
[2020-06-05] MEDS: Metoprolol XL (24 HR) Succ 25 MG TAB.ER.24H PO SCH (08:12)
[2020-06-05] MEDS: Furosemide 40 MG TABLET PO SCH (08:12)
[2020-06-05] MEDS: amLODIPine 5 MG TABLET PO SCH (08:12)
[2020-06-05] MEDS: Folic Acid 1 MG TABLET PO SCH (08:12)
[2020-06-05] MEDS: Insulin LISPRO 300 UNITS/3 ML VIAL SQ SCH ×4 (08:13→21:29)
[2020-06-05] MEDS: *HR* HYDROcodone/Acet 5/325 mg TABLET PO PRN ×2 (08:13→16:41)
[2020-06-05] MEDS: Gabapentin 300 MG CAPSULE PO SCH (21:26)
[2020-06-05] MEDS: Fenofibrate 54 MG TABLET PO SCH (21:27)
[2020-06-06] MEDS: *HR* Heparin 5,000 UNIT/ML VIAL SQ SCH ×2 (04:56→17:06)
[2020-06-06] MEDS: *HR* OxyCODONE Immed Rel 5 MG TABLET PO PRN ×3 (04:56→21:08)
[2020-06-06] MEDS: Furosemide 40 MG TABLET PO SCH (08:37)
[2020-06-06] MEDS: lisinopriL 20 MG TABLET PO SCH (08:37)
[2020-06-06] MEDS: Folic Acid 1 MG TABLET PO SCH (08:37)
[2020-06-06] MEDS: *HR* HYDROcodone/Acet 5/325 mg TABLET PO PRN ×2 (08:38→17:06)
[2020-06-06] MEDS: amLODIPine 5 MG TABLET PO SCH (08:38)
[2020-06-06] MEDS: Metoprolol XL (24 HR) Succ 25 MG TAB.ER.24H PO SCH (08:38)
[2020-06-06] MEDS: Insulin LISPRO 300 UNITS/3 ML VIAL SQ SCH ×4 (08:39→21:09)
[2020-06-06] MEDS ORDERED: Bisacodyl 10 MG RECTAL SUPPOSITORY RC ONE (18:07)
[2020-06-06] MEDS: Fenofibrate 54 MG TABLET PO SCH (21:08)
[2020-06-06] MEDS: Gabapentin 300 MG CAPSULE PO SCH (21:09)
[2020-06-07] MEDS: *HR* Heparin 5,000 UNIT/ML VIAL SQ SCH ×2 (06:18→17:15)
[2020-06-07] MEDS: *HR* HYDROcodone/Acet 5/325 mg TABLET PO PRN ×2 (06:20→22:17)
[2020-06-07] MEDS: lisinopriL 20 MG TABLET PO SCH (09:17)
[2020-06-07] MEDS: Insulin LISPRO 300 UNITS/3 ML VIAL SQ SCH ×4 (09:17→22:21)
[2020-06-07] MEDS: amLODIPine 5 MG TABLET PO SCH (09:18)
[2020-06-07] MEDS: Metoprolol XL (24 HR) Succ 25 MG TAB.ER.24H PO SCH (09:18)
[2020-06-07] MEDS: Furosemide 40 MG TABLET PO SCH (09:18)
[2020-06-07] MEDS: Folic Acid 1 MG TABLET PO SCH (09:18)
[2020-06-07] MEDS: *HR* OxyCODONE Immed Rel 5 MG TABLET PO PRN (15:19)
[2020-06-07] MEDS: Fenofibrate 54 MG TABLET PO SCH (22:16)
[2020-06-07] MEDS: Gabapentin 300 MG CAPSULE PO SCH (22:17)
[2020-06-08] MEDS: *HR* Heparin 5,000 UNIT/ML VIAL SQ SCH ×2 (06:06→17:25)
[2020-06-08] MEDS: Insulin LISPRO 300 UNITS/3 ML VIAL SQ SCH ×4 (08:37→21:43)
[2020-06-08] MEDS: Furosemide 40 MG TABLET PO SCH (08:42)
[2020-06-08] MEDS: amLODIPine 5 MG TABLET PO SCH (08:42)
[2020-06-08] MEDS: lisinopriL 20 MG TABLET PO SCH (08:42)
[2020-06-08] MEDS: Metoprolol XL (24 HR) Succ 25 MG TAB.ER.24H PO SCH (08:43)
[2020-06-08] MEDS: Folic Acid 1 MG TABLET PO SCH (08:43)
[2020-06-08] MEDS: *HR* OxyCODONE Immed Rel 5 MG TABLET PO PRN ×2 (08:43→15:25)
[2020-06-08] MEDS: Fenofibrate 54 MG TABLET PO SCH (21:44)
[2020-06-08] MEDS: Gabapentin 300 MG CAPSULE PO SCH (21:45)
[2020-06-08] MEDS: *HR* HYDROcodone/Acet 5/325 mg TABLET PO PRN (21:45)
[2020-06-09] MEDS: *HR* Heparin 5,000 UNIT/ML VIAL SQ SCH ×2 (05:02→16:26)
[2020-06-09] MEDS: Insulin LISPRO 300 UNITS/3 ML VIAL SQ SCH ×4 (08:16→19:34)
[2020-06-09] MEDS: lisinopriL 20 MG TABLET PO SCH (08:18)
[2020-06-09] MEDS: amLODIPine 5 MG TABLET PO SCH (08:18)
[2020-06-09] MEDS: Folic Acid 1 MG TABLET PO SCH (08:18)
[2020-06-09] MEDS: Furosemide 40 MG TABLET PO SCH (08:18)
[2020-06-09] MEDS: Metoprolol XL (24 HR) Succ 25 MG TAB.ER.24H PO SCH (08:18)
[2020-06-09] MEDS: *HR* OxyCODONE Immed Rel 5 MG TABLET PO PRN ×2 (08:20→13:31)
[2020-06-09] MEDS: *HR* LORazepam 1 MG TABLET PO PRN (19:48)
[2020-06-09] MEDS: Gabapentin 300 MG CAPSULE PO SCH (19:48)
[2020-06-09] MEDS: Fenofibrate 54 MG TABLET PO SCH (19:48)
[2020-06-09] MEDS: *HR* HYDROcodone/Acet 5/325 mg TABLET PO PRN (19:49)
[2020-06-10] MEDS: *HR* Heparin 5,000 UNIT/ML VIAL SQ SCH (05:41)
[2020-06-10] MEDS: Metoprolol XL (24 HR) Succ 25 MG TAB.ER.24H PO SCH (08:16)
[2020-06-10] MEDS: Furosemide 40 MG TABLET PO SCH (08:16)
[2020-06-10] MEDS: lisinopriL 20 MG TABLET PO SCH (08:17)
[2020-06-10] MEDS: Folic Acid 1 MG TABLET PO SCH (08:17)
[2020-06-10] MEDS: amLODIPine 5 MG TABLET PO SCH (08:17)
[2020-06-10] MEDS: Insulin LISPRO 300 UNITS/3 ML VIAL SQ SCH ×2 (08:19→11:53)
[2020-06-10 11:38] VITALS: BP 150/68
[2020-06-10] MEDS: *HR* OxyCODONE Immed Rel 5 MG TABLET PO PRN (13:56)
== END 2020-06-10 17:40 | disposition home health service (06) | DRG 253 ==
LOC: SAMDAY 06:20 → 2NNU 14:15
PROVIDERS: ADMIT Surgery; ATTEND Surgery

== ENCOUNTER 2022-04-11 07:50 | Inpatient (IN) ==
[2022-04-11] MEDS ORDERED: 0.9 % Sodium Chloride 1,000 ML ONE ×2 (08:18→10:27)
[2022-04-11] MEDS ORDERED: 0.9 % Sodium Chloride 250 ML ONE (08:18)
[2022-04-11] MEDS ORDERED: Vancomycin 1,000 MG VIAL ONE (08:18)
[2022-04-11] MEDS ORDERED: D5% in Water 100 ML ONE ×2 (08:18→08:27)
[2022-04-11] MEDS ORDERED: *HR* Heparin 10,000 UNIT/10 ML VIAL ONE (09:47)
[2022-04-11] MEDS ORDERED: Protamine Sulfate 50 MG/5 ML VIAL IVP ONE (09:47)
[2022-04-11] MEDS ORDERED: 0.9 % Sodium Chloride 2,000 ML ONE (09:48)
[2022-04-11] MEDS ORDERED: Heparin 1,000 UNITS/500 mL 2,000 ML ONE (09:48)
[2022-04-11] MEDS ORDERED: *HR* Midazolam HCl 2 MG/2 ML VIAL ONE (10:22)
[2022-04-11] MEDS ORDERED: *HR* FentaNYL (PF) 100 MCG/2 ML VIAL ONE ×2 (10:22→11:23)
[2022-04-11] MEDS ORDERED: Heparin 1,000 UNITS/500 mL 500 ML ONE (11:35)
[2022-04-11] MEDS ORDERED: *HR* OxyCODONE/APAP 5/325 TABLET PO PRN (15:29)
[2022-04-11] MEDS: niCARdipine 20 MG/200 ML MLS IVC SCH ×3 (17:56→23:22)
[2022-04-11] MEDS ORDERED: Gabapentin 300 MG CAPSULE PO ONE (20:30)
[2022-04-11] MEDS: cilostazoL 100 MG TABLET PO SCH (20:51)
[2022-04-11] MEDS ORDERED: Gabapentin 300 MG CAPSULE PO SCH (21:30)
[2022-04-11] MEDS: *HR* OxyCODONE/APAP 5/325 TABLET PO PRN (23:25)
[2022-04-12] MEDS: niCARdipine 20 MG/200 ML MLS IVC SCH ×3 (04:06→13:05)
[2022-04-12 05:35] LABS: Basophils % 0.2 %; Eosinophils # 0.4 K/mcL (0.0-0.6); Eosinophils % 4.2 %; Hematocrit 34.3 % (35.3-44.9); Hemoglobin 11.2 g/dL (11.5-15.4); Immature Granulocytes % 0.2 % (0-4); Lymphocytes # 1.7 K/mcL (0.6-4.6); Lymphocytes % 19.7 %; Mean Corpuscular HGB Conc 32.7 g/dL (31.6-35.5); Mean Corpuscular Hemoglobin 32.1 pg (28.0-33.3); Mean Corpuscular Volume 98.3 fL (83.0-100.0); Monocytes # 0.9 K/mcL (0.0-1.3); Monocytes % 9.9 %; Neutrophils # 5.8 K/mcL (1.6-8.9); Platelet Count 222 K/mcL (140-400); Red Blood Count 3.49 M/mcL (3.82-4.97); Red Cell Distribution Width 13.2 % (11.5-14.5); Segmented Neutrophils % 65.8 %; White Blood Count 8.8 K/mcL (4.3-11.1)
[2022-04-12 05:46] LABS: Prothrombin Time 11.6 Seconds (9.4-12.1)
[2022-04-12 05:53] LABS: BUN/Creatinine Ratio 35 (6-26); Blood Urea Nitrogen 34 mg/dL (8-23); Calcium 8.3 mg/dL (8.6-10.3); Carbon Dioxide 28 mEq/L (23-29); Chloride 104 mEq/L (98-107); Glucose 139 mg/dL (70-105); Osmolality,Calculated 296 (280-300); Potassium 3.8 mEq/L (3.5-5.1); Sodium 138 mEq/L (136-145); eGFR For African Americans > 60 (> 60); eGFR For Non-African Americans 57 (> 60)
[2022-04-12] MEDS ORDERED: Perflutren Lipid Microsphere 1.3 ML in 0.9 % Sodium Chloride 8.7 ML IVP PRN (06:00)
[2022-04-12] MEDS: *HR* OxyCODONE/APAP 5/325 TABLET PO PRN (07:47)
[2022-04-12] MEDS: cilostazoL 100 MG TABLET PO SCH (07:48)
[2022-04-12] MEDS ORDERED: Gabapentin 300 MG CAPSULE PO SCH (09:00)
[2022-04-12] MEDS ORDERED: Metoprolol XL (24 HR) Succ 50 MG TAB.ER.24H PO SCH (09:00)
[2022-04-12] MEDS ORDERED: amLODIPine 5 MG TABLET PO SCH (09:00)
[2022-04-12] MEDS ORDERED: lisinopriL 20 MG TABLET PO SCH (09:00)
[2022-04-12 12:03] VITALS: BP 99/57
[2022-04-12 13:05] VITALS: PULSE 59; O2SAT 92
[2022-04-12 13:28] VITALS: TEMP 98.5
== END 2022-04-12 14:08 | disposition home or self-care (01) | DRG 267 ==
LOC: SAMDAY 07:50 → ICNU 17:03
PROVIDERS: ADMIT Thoracic Surgery (Cardiothoracic Vascular Surgery); ATTEND Thoracic Surgery (Cardiothoracic Vascular Surgery)